=== PATIENT | male | born 1990 | race Caucasian/White ===

== ENCOUNTER 2022-02-15 00:40 | Emergency (ER) | payer OTHER, SELFPAY ==
[2022-02-15 00:46] VITALS: BP 135/90; PULSE 85; RESP 18; TEMP 36.4; O2SAT 98; BMI 25.8
[2022-02-15 01:15] VITALS: TEMP 36.4
[2022-02-15] MEDS: KETOROLAC 30 MG/ML inj IM (01:15)
[2022-02-15] MEDS: MORPHINE 10 MG/ML inj IM (01:16)
--- NOTE | 2022-02-15 01:35 | ED.BACK ---
HPI - Back Pain/Injury General Date Seen: 02/15/22 Chief Complaint: Back Injury/Pain Stated Complaint: Lower Back Pain Time Seen by Provider: 02/15/22 00:41 Source: patient and family Mode of arrival: ambulatory Limitations: no limitations History of Present Illness HPI Narrative: Patient is a 32-year-old gentleman who injured his back yesterday, does remember the actual injury, but describes pain that starts in his lower back and radiates to his right buttock and down his right leg in the hamstrings, to the top of his foot. Has some altered sensation on the top of his foot. But has not fallen, denies any current weakness. Says he has no bowel or bladder problems with this, has been able to urinate and poop. Took Tylenol x1 g earlier today, and ibuprofen 600 mg with really no relief. Brought in by his mother for evaluation of this. Has a history of spinal stenosis remotely he tells me, no history of malignancy, fever, chills, recent surgical issues or instrumentation. Past medical history is reviewed, elicited complaint: back pain Pertinent past history: prior back pain Onset (ago): day(s) Timing: constant Severity: moderate Similar Symptoms Previously: Yes Quality: stabbing and tingling Location: lumbar spine Radiation: right upper leg and right leg below the knee Exacerbating factors: movement and coughing/sneezing Relieving factors: none Associated symptoms: denies other symptoms Treatments prior to arrival: NSAIDS and acetaminophen Work related injury: No Related Data Home Medications Medication Instructions Recorded Confirmed escitalopram oxalate 20 mg tablet 20 mg PO DAILY 02/15/22 02/15/22 Previous Rx's Medication Instructions Recorded gabapentin 300 mg capsule 300 mg PO TID #90 caps 02/15/22 methylprednisolone 4 mg tablets in See Rx Instructions PO .COMPLEX 02/15/22 a dose pack (Medrol (Tima)) #21 ea Allergies Allergy/AdvReac Type Severity Reaction Status Date / Time No Known Drug Allergies Allergy Verified 02/15/22 00:58 Review of Systems Status of ROS: Reports: 10 or more systems reviewed and unremarkable except as noted in History and below [facility] Medical History Lumbar stenosis Surgical History No significant past surgical history Social History Smoking Status: Current some day smoker What tobacco products do you use: cigarettes Do you use any of these nicotine containing products: None Second hand tobacco smoke exposure: Yes How often do you have a drink containing alcohol: never How often do you have six or more drinks on one occasion: Never AUDIT-C Alcohol total score: 0 Non-prescribed substance use: denies use Exam Narrative: Exam Narrative: Patient appears here in some [id number] distress, he listing to the left, offloading his right leg. Some reactive scoliosis associated with this, no palpable tenderness noted over his L-spine, palpation percussion. Flexion minimal approximately 20 ?, positive straight leg raise on the right side, mild weakness of dorsiflex and 4+ out of 5, remainder of distal and proximal muscle groups all normal, slight decrease in L3-L4 knee jerk on the right also. To 1+ remainder of reflexes all 2+, muscle bulk normal bilaterally, no rashes, perianal sensation normal. Const: Vital Signs, click to edit/add: Vital Signs - 24 hr 02/15/22 00:46 02/15/22 01:15 02/15/22 02:10 Temperature 97.6 F 97.6 F 97.6 F Pulse Rate [Right Pulse Oximeter] 85 Respiratory Rate 18 Blood Pressure [Ri ght Upper Arm] 135/90 H Pulse Oximetry 98 Oxygen Delivery Me thod Room Air 02/15/22 02:38 Temperature 97.6 F Pulse Rate [Right Pulse Oximeter] 79 Respiratory Rate 18 Blood Pressure [Ri ght Upper Arm] 125/78 Pulse Oximetry 98 Oxygen Delivery Me thod Room Air Documenting provider has reviewed patient's vital signs: yes Course Course Hospital Course: 2:38 a.m., patient is doing better, pain he reports is decreased, I had a long discussion with him, over this. I suspect he has a lumbar radiculopathy, and will need to follow up with his physician. After discussion the risks benefits side effects I think a small course of narcotic medication will help him, I recommended that he use a stool softener such as Colace and MiraLax with this. I also recommend that he hold off the ibuprofen of for 12 hours as he received Toradol. Gabapentin is also helpful, as the nerve agent, and I gave him a prescription for this also. I recommend follow-up with primary care in the next 3-4 days for recheck and consideration of advanced imaging if he is not improved. Physical therapy can also be helpful. We went over the signs and symptoms of worsening condition including cauda equina syndrome, that he should follow up with the emergency room at once. The risks benefits and side effects of the use of the narcotic medication and gabapentin is discussed with him. A Medrol Dosepak is also helpful, to relieve some of the inflammation. And he is agreed Vital Signs Vital signs: Initial Vital Signs Temperature 97.6 F 02/15/22 00:46 Temperature Source Temporal Artery Scan 02/15/22 00:46 Pulse Rate 85 02/15/22 00:46 Respiratory Rate 18 02/15/22 00:46 Blood Pressure 135/90 H 02/15/22 00:46 Blood Pressure Mean 105 02/15/22 00:46 Blood Pressure Position Sitting 02/15/22 00:46 Pulse Oximetry 98 02/15/22 00:46 Oxygen Delivery Method 02/15/22 00:46 Vital Signs Temperature 97.6 F 02/15/22 00:46 Pulse Rate 85 02/15/22 00:46 Respiratory Rate 18 02/15/22 00:46 Blood Pressure 135/90 H 02/15/22 00:46 Pulse Oximetry 98 02/15/22 00:46 Oxygen Delivery Method 02/15/22 00:46 Temperature 97.6 F 02/15/22 02:38 Pulse Rate 79 02/15/22 02:38 Respiratory Rate 18 02/15/22 02:38 Blood Pressure 125/78 02/15/22 02:38 Pulse Oximetry 98 02/15/22 02:38 Oxygen Delivery Method 02/15/22 02:38 MDM - Back Pain/Injury MDM Narrative Medical decision making narrative: Life-threatening differential diagnosis considered include: Cauda equina an epidural abscess, other differential diagnosis considered includes sprain, contusion, nerve root entrapment, radiculopathy, muscle spasm, urolithiasis, lumbar fracture, pyelonephritis, appendicitis, biliary colic, as well as other etiologies. The patient denies saddle anesthesia bowel or bladder incontinence or lower extremity weakness, recent weight loss, or history of malignancy. Discharge Plan Discharge Clinical Impression: Lumbar radiculopathy Patient Disposition: Home w/ Parent or Adult Condition: Improved Instructions: Lumbar Radiculopathy (ED), Epidural Steroid Injection (DC), Lower Back Exercises (ED) Additional Instructions: Home rest ice on his back, light activity but I do want to moving around a little bit. Return to the emergency room if fevers, chills, bowel or bladder incontinence, follow-up with within the next 3-4 days, for recheck. No ibuprofen x8 hours. Then use as needed. Percocet which is a combination of both oxycodone and acetaminophen for the discomfort, if you do use this please use some stool softeners, as he will become constipated. Fill the prescription for gabapentin and Solu-Medrol also tomorrow. Prescriptions: New methylprednisolone [Medrol (Tima)] 4 mg tablets,dose pack See Rx Instructions .ROUTE .COMPLEX Qty: 21 0RF Rx Instructions: orally per package directions gabapentin 300 mg capsule 300 mg PO TID Qty: 90 2RF No Action escitalopram oxalate 20 mg tablet 20 mg PO DAILY Label Comments: TAKE 1 TABLET BY MOUTH EVERY DAY Follow Up/Referrals: Ariel Banks MD [Primary Care Provider] - Stand Alone Forms: [facility] Info Instructions
[2022-02-15 02:10] VITALS: TEMP 36.4
[2022-02-15] MEDS: predniSONE 20 MG TABLET 60 MG PO (02:36)
[2022-02-15] MEDS: GABAPENTIN 300 MG CAPSULE PO (02:36)
[2022-02-15 02:38] VITALS: BP 125/78; PULSE 79; RESP 18; TEMP 36.4; O2SAT 98
[2022-02-15 02:44] VITALS: BP 125/78; PULSE 79; RESP 18; TEMP 36.4
== END 2022-02-15 02:45 | disposition home or self-care (01) ==
PROVIDERS: Emergency Provider Family Medicine; PCP Internal Medicine
DX: M54.16 Radiculopathy, lumbar region (principal)
CPT/HCPCS: 96372; 99284; A9270; J1885; J2270; J7512

== ENCOUNTER 2022-02-18 17:08 | Outpatient (CLI) | payer OTHER, SELFPAY | END 2022-02-18 17:09 | disposition home or self-care (01) | PROVIDERS: PCP Internal Medicine; Visit Provider Student in an Organized Health Care Education/Training Program | DX: M54.9 Dorsalgia, unspecified (principal) | CPT/HCPCS: A0425; A0433 ==

== ENCOUNTER 2022-02-18 17:40 | Emergency (ER) | payer OTHER, SELFPAY ==
[2022-02-18 17:51] VITALS: BP 144/90; PULSE 101; RESP 18; TEMP 36.3; O2SAT 99; BMI 31.2
--- NOTE | 2022-02-18 18:15 | CRLHL7_ITS ---
For Patients: As a result of the Century Cures Act, medical imaging exams and procedure reports are released immediately into your electronic medical record. You may view this report before your referring provider. If you have questions, please contact your health care provider. INDICATION: Low back pain. Sciatica. TECHNIQUE: Noncontrast sagittal and axial T1, T2, and sagittal STIR sequences are provided. Compared to prior study from March 12, 2013. FINDINGS: The overall stature, alignment and intrinsic marrow signal of the lumbar spine is within normal limits. Conus is normal. L4-5: Mild worsening posterior disc herniation extends 6 millimeters beyond the posterior vertebral body versus 5 millimeters on the prior study resulting in persistent moderate bilateral lateral recess narrowing with compression of the traversing L5 nerve roots with mild central canal and no foraminal narrowing. L5-S1: There is worsening discogenic degenerative change. The mild underlying disc bulge is again demonstrated with interval development of a right posterior paracentral/lateral recess disc extrusion that extends 6 millimeters beyond the posterior vertebral body margin and extends caudally a distance of 11 millimeters resulting in severe right lateral recess narrowing with compression of the traversing right S1 nerve root. Worsening moderate to severe central canal narrowing. Neural foramina are patent. Remainder of the lumbar spine is unremarkable, specifically no evidence of suspicious central canal or foraminal narrowing. IMPRESSION: 1. Interval development of a right posterior paracentral/lateral recess disc extrusion with caudal migration at L5-S1 resulting in severe right lateral recess narrowing with compression of the traversing right S1 nerve root with worsening moderate to severe central canal narrowing. 2. Persistent moderate bilateral lateral recess narrowing at L4-5 with compression of the traversing L5 nerve roots with mild central canal narrowing. Dictated by Shan Oneil MD @ 02/18/2022 7:51:15 PM Dictated by: Shan Oneil MD @ 02/18/2022 19:51:25 (Electronically Signed)
--- NOTE | 2022-02-18 18:17 | ED.GENADULT ---
HPI - General Adult General Time Seen by Provider: 18:17 Date Seen: 02/18/22 Chief complaint: Back Injury/Pain Stated complaint: Back Pain Time Seen by Provider: 02/18/22 17:55 History of Present Illness HPI narrative: Chan is a 32-year-old male past medical history includes depression and lumbar spinal stenosis 10 years ago by MRI presents emerged department by EMS with worsening lower back pain. Patient states that on Tuesday he developed some right lower lumbar pain, he only barbecued on Tuesday, he did no strenuous activity, pain spontaneously started and he was seen in the emergency department here in [place]. He was diagnosed with lumbar radiculopathy, he was given some gabapentin and Medrol Dosepak short course of narcotics in the fall of his primary care provider the next day. There was an MR lumbar spine scheduled for next week. Patient states he has not been feeling better, usually lies in bed gets up from time to time, pain is the right lumbar area radiates down to his foot, he feels like someone is stabbing him. He denies any midline tenderness. He denies any urinary or bowel incontinence or retention, patient states he has numbness down his right leg. He has not had any nausea vomiting or abdominal pain, he said he had a normal bowel movement today. He received 100 mg ketamine prior to his arrival. Related Data Home Medications Medication Instructions Recorded Confirmed escitalopram oxalate 20 mg tablet 20 mg PO DAILY 02/15/22 02/15/22 levocetirizine 5 mg tablet (Xyzal) 5 mg PO QDAY 02/15/22 02/15/22 omeprazole 20 mg capsule,delayed 20 mg PO QDAY 02/15/22 02/15/22 release Previous Rx's Medication Instructions Recorded gabapentin 300 mg capsule 300 mg PO TID #90 caps 02/15/22 methylprednisolone 4 mg tablets in See Rx Instructions PO .COMPLEX 02/15/22 a dose pack (Medrol (Tima)) #21 ea oxycodone-acetaminophen 5 mg-325 1 tab PO TID PRN pain #10 tabs 02/15/22 mg tablet oxycodone 20 mg tablet 20 mg PO TID PRN pain #10 tabs 02/17/22 diazepam 5 mg tablet (Valium) 5 mg PO Q6H PRN #14 tabs 02/18/22 Allergies Allergy/AdvReac Type Severity Reaction Status Date / Time No Known Drug Allergies Allergy Verified 02/15/22 10:45 Review of Systems Status of ROS: Reports: 10 or more systems reviewed and unremarkable except as noted in History and below [facility] Medical History Lumbar stenosis Surgical History No significant past surgical history Social History Smoking Status: Current some day smoker What tobacco products do you use: cigarettes Do you use any of these nicotine containing products: None Second hand tobacco smoke exposure: Yes How often do you have a drink containing alcohol: never How often do you have six or more drinks on one occasion: Never AUDIT-C Alcohol total score: 0 Non-prescribed substance use: denies use service: No Exam Narrative: Exam Narrative: General: Patient is in obvious distress, laying HEENT: Tympanic membranes within normal limits bilaterally oropharynx clear and moist, pupils equal round and reactive to light Neck: Supple full range of motion Heart: Normal sinus rhythm S1-S2 Lungs: Clear to auscultation bilaterally Abdomen: Bowel sounds present, soft nontender Genitourinary: normal rectal tone. Extremities: Nontender to the midline lower lumbar spine, he has tenderness to palpation in the lower lumbar paraspinal musculature L4-L5 and S1, straight leg raise and crossover positive bilaterally, he is hyperreflexic on the right. Equal strength bilateral lower extremities, sensation intact Neuro: Alert awake and oriented x3 Const: Vital Signs, click to edit/add: Vital Signs - 24 hr 02/18/22 17:51 02/18/22 19:27 02/18/22 19:59 Temperature 97.3 F L Pulse Rate [Right Pulse Oximeter] 101 H Respiratory Rate 18 Blood Pressure [Le ft Upper Arm] 144/90 H 126/74 116/68 Pulse Oximetry 99 Oxygen Delivery Me thod Room Air 02/18/22 20:00 Temperature Pulse Rate [Right Pulse Oximeter] Respiratory Rate Blood Pressure [Le ft Upper Arm] 146/97 H Pulse Oximetry Oxygen Delivery Me thod Course Course Hospital Course: AIDET performed. Vitals are stable. Workup will include IV peripheral, 10 mg IV Decadron, 5 mg IV Valium, 1 mg IV Dilaudid and 30 mg of IV Toradol for his pain, patient's exam showed good rectal tone, no issues with urinary or bowel incontinence or retention, is able to move his lower extremities. Will still obtain MR lumbar spine without. Reevaluation(s) Reevaluation #1: MR Lumbar spine w/o IMPRESSION: 1. Interval development of a right posterior paracentral/lateral recess disc extrusion with caudal migration at L5-S1 resulting in severe right lateral recess narrowing with compression of the traversing right S1 nerve root with worsening moderate to severe central canal narrowing. 2. Persistent moderate bilateral lateral recess narrowing at L4-5 with compression of the traversing L5 nerve roots with mild central canal narrowing. Patient was updated on his imaging and lab results, plan would be to admit for pain control and PT OT evaluation, tried to reach out to [facility] and [facility] but they were unable to accommodate. Time: 20:40 Reevaluation #2: Spoke with [place] [facility] the [place]. He will get patient into their clinic next week for discussion on surgery. 10:00 PM: Patient is tolerating the pain at this time, he is able to ambulate, plan would be to discharge, he will get a short course of oxycodone and Valium out of [facility], follow-up will be arranged with neurosurgery at [facility] hopefully soon, he should also reach out to his primary care provider about his ED visit. All questions answered. Time: 21:14 Vital Signs Vital signs: Initial Vital Signs Temperature 97.3 F L 02/18/22 17:51 Temperature Source Temporal Artery Scan 02/18/22 17:51 Pulse Rate 101 H 02/18/22 17:51 Pulse Rhythm 02/18/22 17:51 Respiratory Rate 18 02/18/22 17:51 Blood Pressure 144/90 H 02/18/22 17:51 Blood Pressure Mean 108 02/18/22 17:51 Blood Pressure Position Supine 02/18/22 17:51 Pulse Oximetry 99 02/18/22 17:51 Oxygen Delivery Method 02/18/22 17:51 Vital Signs Temperature 97.3 F L 02/18/22 17:51 Pulse Rate 101 H 02/18/22 17:51 Respiratory Rate 18 02/18/22 17:51 Blood Pressure 144/90 H 02/18/22 17:51 Pulse Oximetry 99 02/18/22 17:51 Oxygen Delivery Method 02/18/22 17:51 Temperature 97.3 F L 02/18/22 17:51 Pulse Rate 101 H 02/18/22 17:51 Respiratory Rate 18 02/18/22 17:51 Blood Pressure 146/97 H 02/18/22 20:00 Pulse Oximetry 99 02/18/22 17:51 Oxygen Delivery Method 02/18/22 17:51 Medical Decision Making Lab Data Labs: Lab Results 02/18/22 02/18/22 02/18/22 Range/Units 18:36 18:36 20:40 WBC 15.60 H (4.50-11.00) K/uL RBC 5.35 (4.30-5.90) m/uL Hgb 15.7 (13.5-17.5) gm/dL Hct 45.1 (37.0-53.0) % MCV 84 (80-100) fL MCH 29 (26-34) pg MCHC 35 (32-36) gm/dL RDW Coeff of Josue 12.2 (11.5-15.5) % Plt Count 434 (140-440) K/uL Neut % (Auto) 75.9 H (42.0-72.0) % Lymph % (Auto) 17.1 L (20-44) % [place] % (Auto) 6.2 (0.0-11.0) % Eos % (Auto) 0.1 (0.0-7.0) % Baso % (Auto) 0.3 (0.0-3.0) % Neut # (Auto) 11.80 H (1.7-7.0) K/uL Lymph # (Auto) 2.70 (0.90-2.90) K/uL [place] # (Auto) 1.00 H (0.00-0.90) K/UL Eos # (Auto) 0.00 (0.00-0.50) K/uL Baso # (Auto) 0.00 (0.00-0.30) K/uL Abs Immat Gran (auto) 0.06 (0.00-0.30) K/uL Sodium 136 (135-149) mmol/L Potassium 3.6 (3.6-5.1) mmol/L Chloride 103 (96-114) mmol/L Carbon Dioxide 20 (20-32) mmol/L BUN 27 H (5-24) mg/dL Creatinine 1.1 (0.5-1.5) mg/dL Estimated Creat Clear 103.86 Estimated GFR 90 ml/min Glucose 114 (60-115) mg/dL Calcium 9.6 (8.4-10.6) mg/dL C-Reactive Protein < 0.5 L (0.5-1.0) mg/dL SARS-CoV-2 (PCR) Negative SARS-CoV-2 (Negative) Influenza Type A (PCR) Negative PCR FLU A (Negative) Influenza Type B (PCR) Negative PCR FLU B (Negative) Discharge Plan Discharge Clinical Impression: Extrusion of intervertebral disc, Low back pain radiating to right leg Patient Disposition: Home, Self-Care Condition: Improved Instructions: Lumbar Radiculopathy (ED) Additional Instructions: To continue with Motrin 600 mg and 1000 mg acetaminophen every 4-6 hours, for breakthrough pain oxycodone 5 mg with Valium 5 mg, to continue Medrol Dosepak, to await call from [place]surgery at [facility] [place] up clinic appointment, return if worsening symptoms. Activity Level: Activity as Tolerated Prescriptions: New diazepam [Valium] 5 mg tablet 5 mg PO Q6H PRNQty: 14 0RF No Action levocetirizine [Xyzal] 5 mg tablet 5 mg PO QDAY omeprazole 20 mg capsule,delayed release(DR/EC) 20 mg PO QDAY oxycodone-acetaminophen 5-325 mg tablet 1 tab PO TID PRN (Reason: pain) Qty: 10 0RF escitalopram oxalate 20 mg tablet 20 mg PO DAILY Label Comments: TAKE 1 TABLET BY MOUTH EVERY DAY methylprednisolone [Medrol (Tima)] 4 mg tablets,dose pack See Rx Instructions .ROUTE .COMPLEX Qty: 21 0RF Rx Instructions: orally per package directions gabapentin 300 mg capsule 300 mg PO TID Qty: 90 2RF oxycodone 20 mg tablet 20 mg PO TID PRN (Reason: pain) Qty: 10 0RF Follow Up/Referrals: Ariel Banks MD [Primary Care Provider] - Stand Alone Forms: [facility] Info Instructions
[2022-02-18] MEDS: dexAMETHasone 10 MG/ML inj IVP (18:36)
[2022-02-18] MEDS: diazePAM 5 MG/ML inj IV ×2 (18:37→21:51)
[2022-02-18] MEDS: KETOROLAC 30 MG/ML inj IVP (18:39)
[2022-02-18] MEDS: HYDROmorphone 0.5 mg/0.5 ml inj 1 MG IVP (18:41)
[2022-02-18 18:44] LABS: Basophils Percent Auto 0.3 % (0.0-3.0); Eosinophils Percent Auto 0.1 % (0.0-7.0); Hematocrit 45.1 % (37.0-53.0); Hemoglobin* 15.7 gm/dL (13.5-17.5); Immature Granulocytes Abs Auto 0.06 K/uL (0.00-0.30); Lymphocytes Percent Auto 17.1 % (20-44); Mean Corpuscular HGB Conc 35 gm/dL (32-36); Mean Corpuscular Hemoglobin 29 pg (26-34); Mean Corpuscular Volume 84 fL (80-100); Monocytes Percent Auto 6.2 % (0.0-11.0); Neutrophils Percent Auto 75.9 % (42.0-72.0); Platelet Count* 434 K/uL (140-440); RDW Coefficient of Variation % 12.2 % (11.5-15.5); Red Blood Count 5.35 m/uL (4.30-5.90)
[2022-02-18 18:46] LABS: Slide Review Reflex No
[2022-02-18 19:06] LABS: Chloride* 103 mmol/L (96-114)
[2022-02-18 19:07] LABS: Potassium* 3.6 mmol/L (3.6-5.1); Sodium* 136 mmol/L (135-149)
[2022-02-18 19:09] LABS: Creatinine* 1.1 mg/dL (0.5-1.5); Est. Creatinine Clearance* 103.86; Estimated Glomerular Filt Rate 90 ml/min
[2022-02-18 19:10] LABS: Blood Urea Nitrogen* 27 mg/dL (5-24); Carbon Dioxide* 20 mmol/L (20-32); Glucose* 114 mg/dL (60-115)
[2022-02-18 19:11] LABS: Calcium* 9.6 mg/dL (8.4-10.6)
[2022-02-18 19:14] LABS: C Reactive Protein* < 0.5 mg/dL (0.5-1.0)
[2022-02-18 19:27] VITALS: BP 126/74
[2022-02-18 19:59] VITALS: BP 116/68
[2022-02-18 20:00] VITALS: BP 146/97
--- NOTE | 2022-02-18 20:10 | ED.NURSE ---
ANW called for neurosurg consult
[2022-02-18] MEDS: HYDROmorphone 0.5 mg/0.5 ml inj IVP (21:07)
[2022-02-18 22:03] LABS: PCR FLU A Negative PCR FLU A (Negative); SARS PCR* Negative SARS-CoV-2 (Negative)
[2022-02-18 22:04] LABS: PCR FLU B Negative PCR FLU B (Negative)
== END 2022-02-18 22:48 | disposition home or self-care (01) ==
PROVIDERS: Emergency Provider Student in an Organized Health Care Education/Training Program; PCP Internal Medicine
DX: M51.16 Intervertebral disc disorders with radiculopathy, lumbar region (principal)
CPT/HCPCS: 36415; 72148; 80048; 85025; 86140; 87631; 96374; 96375; 96376; 99283; 99284; J1100; J1170; J1885; J3360

== ENCOUNTER 2022-03-25 13:30 | Outpatient (RCR) | payer OTHER, SELFPAY | END 2023-01-06 23:59 | disposition home or self-care (01) | PROVIDERS: PCP Internal Medicine; Visit Provider Specialist | DX: M51.26 Other intervertebral disc displacement, lumbar region (principal); Z51.89 Encounter for other specified aftercare | CPT/HCPCS: 97110; 97140; 97162; 97535 ==

== ENCOUNTER 2022-04-18 00:47 | Outpatient (CLI) | payer OTHER, SELFPAY ==
--- OUTSIDE RECORDS SUMMARY | 2022-05-24 21:02 | XMS_ITS | Clinical Summary ---
:1990 Author Organization [email or web address] [place] [address] Care Team Providers Name Role Phone Unavailable Primary Care Provider Unavailable Allergies Active Allergy Reactions Severity Noted Date Comments [place] Oil Throat Swelling/Closing Low 02/07/2007 [place] Nut Anaphylaxis High 04/14/2022 Tree Nut Anaphylaxis High 04/14/2022 Medications Medication Sig Dispensed Refills Start Date End Date Status albuterol HFA INHALE 2 PUFFS BY 0 06/18/2021 Active (PRO-AIR; VENTOLIN; MOUTH EVERY 4 TO 6 PROVENTIL) 90 HOURS NEEDED FOR mcg/actuation inhaler WHEEZING/DIFFICULT BREATHING clobetasol cream Apply topically to 0 07/24/2021 Active 0.05% (TEMOVATE) 0.05 affected area(s) % cream once weekly. Uses on weekends gabapentin Take 300 mg by 0 02/15/2022 Act alfonso (NEURONTIN) 300 mg mouth two times capsule daily. levocetirizine Take 5 mg by mouth 0 Active (XYZAL) 5 mg tab once daily. tablet omeprazole 20 mg Take 20 mg by mouth 0 Active tablet once daily. ruxolitinib 1.5 % Apply topically to 0 Active creaIndications: affected area(s) at eczema bedtime. To hands escitalopram oxalate Take 20 mg by mouth 0 2 Active (LEXAPRO) 20 mg once daily. tablet EPINEPHrine (EPIPEN) Inject 1 pen 0 Active 0.3 mg/0.3 mL intramuscular each auto-injector time if needed for Allergic Reaction. acetaminophen Take 2 Tablets 0 04/17/2022 Active (TYLENOL EXTRA (1,000 mg) by mouth STRGTH) 500 mg every 6 hours if tabletIndications: needed for Pain. Postoperative pain Max acetaminophen dose: 4000mg in 24 hrs. methocarbamoL Take 1 Tablet (750 25 Tablet 0 04/17/2022 Active (ROBAXIN) 750 mg mg) by mouth every tabletIndications: 6 hours if needed Postoperative pain for Muscle Spasm. oxyCODONE Take 1 to 2 tablets 25 Tablet 0 04/17/2022 Active (ROXICODONE) 5 mg (5-10 mg) by mouth immediate release every 4 hours if tabletIndications: needed for severe Postoperative pain pain. sennosides-docusate Take 1-4 Tablets by 30 Tablet 0 04/17/2022 Active (SENOKOT S) (8.6-50 mouth two times mg) daily. tabletIndications: Constipation, unspecified constipation type WalkerIndications: Walker with front 1 Each 0 04/20/2022 Active Spinal stenosis of wheels for home use lumbar region, for 3 months. unspecified whether neurogenic claudication present ibuprofen (ADVIL; Take 3 Tablets (600 0 04/20/2022 Active MOTRIN) 200 mg mg) by mouth every tabletIndications: 6 hours if needed Postoperative pain for Pain. Maximum after spinal surgery of 3200 mg in 24 hours. cyclobenzaprine Take 1 Tablet (5 30 Tablet 0 04/20/2022 Active (FLEXERIL) 5 mg mg) by mouth three tabletIndications: times daily. Postoperative pain after spinal surgery Active Problems Problem Noted Date Anxiety 04/16/2022 Postoperative pain 04/16/2022 Allergic rhinitis 04/16/2022 Unspecified asthma(493.90) 11/01/2006 Sprain of hand, unspecified site 11/01/2006 Nut allergy Overview: tree nuts (NOT peanuts) Acne Encounters Date Type Specialty Care Team Description 04/21/2022 Patient Outreach Chun, Primary RN Care Eunice Miranda RN Management (Chasidy jones score 63); Hospital F /U (Post hospital) 04/18/2022 - Hospital Encounter Aristeo Thomas Postop erative pain after spinal surgery (Primary Dx); 04/20/2022 ALLYN Herring Spinal stenosis of lumbar region, unspec ified whether neurogenic claudication present [place], Ina Heaven, MD Deniz Fisher PA [place], Jonathan Sanford, MD [place], [facility] Naren Cui MD Discharge Summary - Anurag Anhmarcela Rodriguez NP - 05/10/2022 4:53 PM CST HOSPITAL DISCHARGE SUMMARY Patient Name: Chan Alvarez Date of : 1990 Age : 32 y.o. [id number] Primary Physician: [facility] Admission Date: 04/18/2022 Discharge Date: 04/20/2022 BRIEF HOSPITAL COURSE: MrIva Alvarez is a 32 y .o. who underwent Right sided L5-S1 hemilaminotomy, diskectomy on 04/16/[address] Caraballo, discharged to home on 04/17/22. [facility] returned to [facility] on 04/18/22 with new pain and par esthesias, along with diffic ulty starting urine stream. MRI was completed, shows postop changes. Patient appears to have hematoma in discectomy area space versus recurrence. At time of surgery, nerve wa s completely free with excur brian. Patient received corticosteroids with significant relief in symptoms. He was discharged from [facility] to home. PRINCIPAL DIAGNOSIS CAUSING [...] your medicines These medications were sent to [facility] [address] [place] [id number] Hours: Open 24 Hours ?? cyclobenzaprine 5 [...] Please follow up with Naren Salinas* at [facility] in 4-6 weeks. If you follow with your surg marshal at [facility], call [phone] for questions, or to make an appointment. If you follow with your surg marshal at [facility], please call [facility] Orthopedic Center at [phone] When to follow up: 4 to 6 [...] with gauze and call the surgeon at [phone]. Information about NSAIDS NSAIDs (Non-Steroidal Anti- Inflammatories): [...] your surgeon - follow specific exercise p rogram outlined in the spine manual by your surgeon, therapist, fire equipment inspector helper - stay away from hot tubs, t [...] nearby hospital [facility] The reason you were in the hospital is for spine surgery. Your incision was closed wi th: - Steri Strips; they will f all off on their own; do not remove them. Total time spent for dischar ge on date of discharge: 20 minutes Anh Disla CNP [facility] RT MANAGER 04/18/2022 Travel 04/16/2022 Anesthesia Event DecrejarekeEdward MD Zimmerman, Anna A, INSIDE SALES EXECUTIVE 04/16/2022 Surgery Genny Caraballo DECOMPRESSION- MD Chayito HEMILAMINOTOMY/ DISCECTOM Y L4-S1 04/16/2022 - Hospital Encounter Genny Caraballo Postopera tive pain (Primary Dx); 04/17/2022 MD Chayito Constipation, u nspecified constipation type 04/16/2022 Travel 04/14/2022 Travel 03/02/2022 Telephone Center, [place] Referral (Rec eived Pain injection refer ral from [facility]) from Last 3 Months Immunizations [...] Time Signature COVID 19 Negative Negative 04/18/2022 [facility] 12:03 PM CDT LABORATORY-[facility] MOLECULAR TRAL LABORATORY [...] CDT AM CDT STRUCTURE / Unknown Narrative [facility] LABORATORY-CENTRAL LABORAT ORY - 04/18/2022 12:03 [...] sooner. Deniz GRUBER MICROBIOLOGY Performing Organization Address City/[facility]/ZIP Code Phon e Number [facility] [address] [place] [address] LABORATORY-CENTRAL 2000 LABORATORY COVID 19 COLLECTION (04/18/2022 8:50 AM CDT) [facility] Method Time Signature TESTING [facility] 04/18/2022 [facility] LABORATORY Laboratory 8:56 AM CDT LABORATORY-CE NTRAL LABORATORY Comment: Specimen submitted to [facility] Laboratory for testing. Specimen Anatomical Location / Collection Method Collection Kj e Received Time (Source) Laterality / Volume Other SPECIMEN FROM Non-Blood / 04/18/2022 8:50 04/18/2022 8:56 NASOPHARYNGEAL Unknown AM CDT AM CDT STRUCTURE / Unknown Deniz GRUBER SEND OUTS Performing Organization Address City/[facility]/ZIP [facility] Phon e Number [facility] [address] [place] [address] LABORATORY-CENTRAL 2000 LABORATORY MR Lumbar Spine wo [...] neural foraminal narrowing. L4-5: Moderate disc degeneration. Bottom Stainer ior disc bulge. Dorsal epidural fat prominence [...] narrowing. Procedure Note Ricky Saeed MD - 04/18/2022 ormatting of this note might be different from the original. For Patients: As a result of the ntury Cures Act, medical imaging exams and procedure reports are released immediately into your electronic medical record. You may view this report before your referring provider. If you have questions, please contact doctors hospital care provider. INDICATION: Low back pain. Cauda [...] neural foraminal narrowing. L4-5: Moderate disc degeneration. Bottom Stainer ior disc bulge. Dorsal epidural fat prominence [...] PLT NO DIFF (04/18/2022 4:35 AM CDT) [facility] Method Time Signature WHITE BLOOD 11.9 (H) 4.5 - 11.0 04/18/2022 [facility] COUNT thou/cu mm 4:54 AM CDT LABORATORY-[facility] TRAL LABORATORY RED BLOOD COUNT 4.60 4.30 - 04/18/2022 [facility] 5.90 4:54 AM CDT LABORATORY-[facility] mil/cu mm TRAL LABORATORY HEMOGLOBIN 13.6 13.5 - 04/18/2022 [facility] 17.5 g/dL 4:54 AM CDT LABORATORY-[facility] TRAL LABORATORY HEMATOCRIT 39.8 37.0 - 04/18/2022 [facility] 53.0 % 4:54 AM CDT LABORATORY-[facility] TRAL LABORATORY MCV 87 80 - 100 04/18/2022 [facility] 4:54 AM CDT LABORATORY-[facility] TRAL LABORATORY MCH 29.6 26.0 - 04/18/2022 [facility] 34.0 pg 4:54 AM CDT LABORATORY-[facility] TRAL LABORATORY MCHC 34.2 32.0 - 04/18/2022 [facility] 36.0 g/dL 4:54 AM CDT LABORATORY-[facility] TRAL LABORATORY RDW 12.3 11.5 - 04/18/2022 [facility] 15.5 % 4:54 AM CDT LABORATORY-[facility] TRAL LABORATORY PLATELET COUNT 313 140 - 440 04/18/2022 [facility] thou/cu mm 4:54 AM CDT LABORATORY-[facility] TRAL LABORATORY MPV 9.2 6.5 - 11.0 04/18/2022 [facility] fL 4:54 AM CDT LABORATORY-[facility] TRAL LABORATORY NRBC 0.0 % 04/18/[facility]22 [facility] 4:54 AM CDT LABORAT[facility] TRAL LABORATORY ABS NRBC 0.0 thou /cu 04/18/2022 [facility] mm 4:54 AM CDT LABORATORY-[facility] TRAL LABORATORY Specimen Anatomical Collection Method / Collection Time Recei maddy Time (Source) Location / Volume Laterality Blood BLOOD SPECIMEN / Venipuncture / 04/18/2022 4:35 2021 4:49 Unknown Unknown AM CDT AM CDT [facility] GRUBER HEMATOLOGY Performing Organization Address City/State/ZIP Code Phon e Number [facility] [address] [place] [address] LABORATORY-CENTRAL 2000 LABORATORY (ABNORMAL) BASIC METABOLIC PANEL (04/18/2022 4:35 AM CDT) Analysis Performed At Patho logist Time Signature SODIUM 139 135 - 145 04/18/2022 [facility] mmol/L 5:16 AM CDT LABORATORY-[facility] TRAL LABORATORY POTASSIUM 3.7 3.5 - 5.0 04/18/2022 [facility] mmol/L 5:16 AM CDT LABORATORY-[facility] TRAL LABORATORY CHLORIDE 107 98 - 110 04/18/2022 [facility] mmol/L 5:16 AM CDT LABORATORY-[facility] TRAL LABORATORY CO2,TOTAL 26 21 - 31 04/18/2022 [facility] mmol/L 5:16 AM CDT LABORATORY-[facility] TRAL LABORATORY ANION GAP 6 5 - 18 04/18/2022 [facility] 5:16 AM CDT LABORATORY-[facility] TRAL LABORATORY GLUCOSE 101 (H) 65 - 100 04/18/2022 [facility] mg/dL 5:16 AM CDT LABORATORY-[facility] TRAL LABORATORY CALCIUM 9.3 8.5 - 10.5 04/18/2022 [facility] mg/dL 5:16 AM CDT LABORATORY-[facility] TRAL LABORATORY BUN 14 8 - 25 04/18/2022 [facility] mg/dL 5:16 AM CDT LABORATORY-[facility] TRAL LABORATORY CREATININE 0.98 0.72 - 04/18/2022 [facility] 1.25 mg/dL 5:16 AM CDT LABORATORY-[facility] TRAL LABORATORY BUN/CREAT RATIO 14 10 - 20 04/18/2022 [facility] 5:16 AM CDT LABORATORY-[facility] TRAL LABORATORY eGFR >90 >90 04/18/2022 [facility] mL/min/1.7 5:16 AM CDT LABORATORY-[facility] 3m2 TRAL [...] Organization Address City/State/ZIP Code Phon e Number [facility] [address] [place] [address] LABORATORY-CENTRAL 2000 LABORATORY XR SPINE 1 VIEW [...] report s [facility]. ??You may view this report [...] provider. If you have questions, please contact [facility] health care provider. INDICATIONS: Spinal localization. TECHNIQUE: [...] GLUCOSE METER 95 65 - 100 04/16/2022 [facility] mg/dL 7:19 AM CDT LABORATORY-CENT RAL LABORATORY Specimen Anatomical Collection Method Collection Time Receive d Time (Source) Location / / Volume Laterality Blood BLOOD SPECIMEN / 04/16/2022 6:59 AM 04/16 7:19 Unknown CDT AM CDT Genny Caraballo MD CHEMISTRY Performing Organization Address City/State/ZIP Code Phon e Number [facility] [address] [place] [address] LABORATORY-CENTRAL 2000 LABORATORY SCAN-CARDIAC STRIP (04/16/2022 12:00 [...] ss Type Group PREFERRED ONE PREFERRED ONE [id number] 2019-Present [address] [place] [address] Advance Directives Latest Code Status on File [...]
== END 2022-04-18 00:48 | disposition home or self-care (01) ==
LOC: AMB 05-24 21:00
PROVIDERS: PCP Internal Medicine; Visit Provider Family Medicine
DX: M54.9 Dorsalgia, unspecified (principal)
CPT/HCPCS: A0425; A0427

== ENCOUNTER 2022-05-05 09:20 | Outpatient (CLI) | payer OTHER, SELFPAY ==
--- OUTSIDE RECORDS SUMMARY | 2022-05-05 09:47 | XMS_ITS | Clinical Summary ---
:1990 Author Organization [employer] [place] [address] Care Team Providers Name Role Phone [facility] Primary Care Provider Allergies Active Allergy Reactions Severity Noted Date Comments [place] Oil Throat Swelling/Closing Low 02/07/2007 [place] Nut Anaphylaxis High 04/14/2022 Tree Nut Anaphylaxis High 04/14/2022 Medications Medication Sig Dispensed Refills Start End Status Date Date albuterol HFA INHALE 2 PUFFS BY 0 Active (PRO-AIR; VENTOLIN; MOUTH EVERY 4 TO 1 PROVENTIL) 90 6 HOURS NEEDED mcg/actuation FOR inhaler WHEEZING/DIFFICUL T BREATHING clobetasol cream Apply topically 0 Active 0.05% (TEMOVATE) to affected 2 0.05 % cream area(s) once weekly. Uses on weekends gabapentin Take 300 mg by 0 Acti ve (NEURONTIN) 300 mg mouth two times 2 capsule daily. levocetirizine Take 5 mg by 0 Ac tive (XYZAL) 5 mg tab mouth once daily. tablet omeprazole 20 mg Take 20 mg by 0 Active tablet mouth once daily. ruxolitinib 1.5 % Apply topically 0 Active creaIndications: to affected eczema area(s) at bedtime. To hands escitalopram Take 20 mg by 0 Act alfonso oxalate (LEXAPRO) mouth once daily. 2 20 mg tablet EPINEPHrine Inject 1 pen 0 Activ e (EPIPEN) 0.3 mg/0.3 intramuscular mL auto-injector each time if needed for Allergic Reaction. acetaminophen Take 2 Tablets 0 A ctive (TYLENOL EXTRA (1,000 mg) by 2 STRGTH) 500 mg mouth every 6 tabletIndications: hours if needed Postoperative pain for Pain. Max acetaminophen dose: 4000mg in 24 hrs. methocarbamoL Take 1 Tablet 25 Tablet 0 Ac tive (ROBAXIN) 750 mg (750 mg) by mouth 2 tabletIndications: every 6 hours if Postoperative pain needed for Muscle Spasm. oxyCODONE Take 1 to 2 25 Tablet 0 Active (ROXICODONE) 5 mg tablets (5-10 mg) 2 immediate release by mouth every 4 tabletIndications: hours if needed Postoperative pain for severe pain. sennosides-docusate Take 1-4 Tablets 30 Tablet 0 Active (SENOKOT S) (8.6-50 by mouth two 2 mg) times daily. tabletIndications: Constipation, unspecified constipation type WalkerIndications: Walker with front 1 Each 0 Active Spinal stenosis of wheels for home 2 lumbar region, use for 3 months. unspecified whether neurogenic claudication present ibuprofen (ADVIL; Take 3 Tablets 0 Active MOTRIN) 200 mg (600 mg) by mouth 2 tabletIndications: every 6 hours if Postoperative pain needed for Pain. after spinal Maximum of 3200 surgery mg in 24 hours. cyclobenzaprine Take 1 Tablet (5 30 Tablet 0 Active (FLEXERIL) 5 mg mg) by mouth 2 tabletIndications: three times Postoperative pain daily. after spinal surgery CLEOCIN T 1 % TO FACE BID 0 Disc ontinued LOTION 7 022 (Pharmacis t change per medication history (E-cancel not sent)) DIFFERIN 0.1 % QPM 0 Disco ntinued TOPICAL GEL 7 022 (Pharmac ist change per medication history (E-cancel not sent)) DESQUAM-E 10 % QAM 0 Disco ntinued TOPICAL GEL 7 022 (Pharmac ist change per medication history (E-cancel not sent)) MAXAIR AUTOHALER 2 puffs every 4 1 0 Discontinued 200 MCG/INHALATION hours as needed 9 022 (Pharmacist BREATH change per ACTIVATEDIndication medication s: Unspecified histo ry asthma(493.90) (E-ca ncel not sent)) EPIPEN 0.3 MG/0.3 inject 0.3 mg by 2 0 04/15 Discontinued ML (1:1,000) IM intramuscular 9 022 (Pharmacist INJECTORIndications route once as change per : Nut allergy needed for medic ation anaphylaxis history (E-cancel not sent)) diazePAM (VALIUM) 5 Take 5 mg by 0 Discontinued mg tablet mouth every 6 2 022 (*IP hours if needed. Dis continued) WalkerIndications: Walker with front 1 Each 0 Discontinued Postoperative pain wheels for home 2 022 (Pharmacist use for 3 months. ch demetrice per medication history (E-cancel not sent)) Active Problems Problem Noted Date Anxiety 04/16/2022 Postoperative pain 04/16/2022 Allergic rhinitis 04/16/2022 Unspecified asthma(493.90) 11/01/2006 Sprain of hand, unspecified site 11/01/2006 Nut allergy Overview: tree nuts (NOT peanuts) Acne Encounters Date Type Specialty Care Team Description 04/21/2022 Patient Outreach Chun, Primary RN Care Eunice Miranda RN Management (Chasidy ce score 63); Hospital F /U (Post hospital) 04/18/2022 - Hospital Encounter Aristeo Thomas Postop erative pain after spinal surgery (Primary Dx); 04/20/2022 ALLYN Herring Spinal stenosis of lumbar region, unspec ified whether neurogenic claudication present Ina Parmar MD Arnett, Collin Robert, PA [place], Jonathan Sanford, MD [facility] Spine Naren Cui MD 04/18/2022 Travel 04/16/2022 Anesthesia Event Decresce, MD Sandra Macias Anna A, CRNA 04/16/2022 Surgery Genny Caraballo- MD [place] HEMILAMINOTOMY/ DISCECTO MY L4-S1 04/16/2022 - Hospital Encounter Genny Caraballo Postopera tive pain (Primary Dx); 04/17/2022 MD [place] Constipation, u nspecified constipation type 04/16/2022 Travel 04/14/2022 Travel 03/02/2022 Telephone Center, [place] Referral (Rec eived Pain injection refer ral from [facility]) from Last 3 Months Immunizations Name Administration Dates Next Due AMB Influenza, IIV3 (Age >=3 years)(Flu 04/12/2008 Clinic Only) Hepatitis B (Adult) 10/29/1998, 06/09/1998, 04/09/1998 Influenza, IIV3 (Age >=3 years) 05/09/2007, 04/30/2006 MMR 09/26/2000 Meningococcal Vaccine (Menactra) 02/07/2007 Td (Age >=7 Years) 09/26/2000 Family History Medical History Relation Name Comments Good Health Father Good Health Mother Good Health Sister 2 Relation Name Status Comments Father Alive Mother Alive Sister 1 Alive Sister 2 Social History Tobacco Use Types Packs/Day Years Used Date Never Smoker Smokeless Tobacco: Never Used Alcohol Use Standard Drinks/Week Comments Yes 6.7 (1 standard drink = 0.6 oz pure rare ly drinks to drunkenness, alcohol) usually a beer or gl ass of wine about 5 times a week Sex Assigned at Date Recorded Not on file COVID-19 Exposure Response Date Recorded In the last 10 days, have you been in contact Unable to asse ss 04/18/2022 2:04 AM CDT with someone who was confirmed or suspected to have Coronavirus/COVID-19? Obstetrics History Last Filed Vital Signs Vital Sign Reading Time Taken Comments Blood Pressure 124/82 04/20/2022 8:00 AM CDT Pulse 61 04/20/2022 8:00 AM CDT Temperature 36.5 ??C (97.7 ??F) 04/20/2022 1:00 AM CDT Respiratory Rate 16 04/20/2022 8:00 AM CDT Oxygen Saturation 97% 04/20/2022 8:00 AM CDT Inhaled Oxygen Concentration - - Weight 99.8 kg (220 lb) 04/18/2022 2:05 AM CDT Height 182.9 cm (6') 04/18/2022 2:05 AM CDT Body Mass Index 29.84 04/18/2022 2:05 AM CDT Plan of Treatment Health Maintenance Due Date Last Done Comments Tdap 02/02/1999 Depression screening for age 12+ 2000 HIV for age 15-65 02/02/2003 BMI (ht and wt on same day) for 02/02/2006 age 18+ Hepatitis C screening for age 0802/02/2006 18-79 Tetanus booster 09/26/2010 09/26/2000 Influenza for age 9-49 02/18/2022 04/12/2008, 05/09/2007, 04/30/2006 COVID-19 vaccine series Completed 04/01/2022, 06/09/2021, 10/07/2020, Additional history exists Procedures Procedure Name Priority Date/Time Associated Diagnosis Comme nts COVID 19 STAT 04/18/2022 8:50 Results for this AM CDT procedure are i n the results section. COVID 19 COLLECTION STAT 04/18/2022 8:50 Resul ts for this AM CDT procedure are i n the results section. MR SPINE LUMBAR WO STAT 04/18/2022 5:52 Result s for this AM CDT procedure are i n the results section. BASIC METABOLIC PANEL STAT 04/18/2022 4:35 Res ults for this AM CDT procedure are i n the results section. CBC W PLT NO DIFF STAT 04/18/2022 4:35 Results for this AM CDT procedure are i n the results section. XR SPINE 1 VIEW Routine 04/16/2022 8:32 Results f or this PORTABLE AM CDT procedure are i n the results section. ENDOTRACHEAL TUBE Routine 04/16/2022 7:43 Results for this AM CDT procedure are i n the results section. ENDOTRACHEAL TUBE Routine 04/16/2022 7:43 Results for this AM CDT procedure are i n the results section. ENDOTRACHEAL TUBE Routine 04/16/2022 7:43 Results for this AM CDT procedure are i n the results section. LAMINECTOMY Tier 4 04/16/2022 7:11 Stenosis, Lumbar - MICRODISCECTOMY LEVEL AM CDT w/Neurogenic 02 Claudication M48.062 Radiculopathy, Lumbar M54.16 Weakness R53.1 Case Notes C_Arm Igor-Paul FrameMR Special Needs WT 230 GLUCOSE METER Timed 04/16/2022 6:59 AM CDT Resu lts for this procedure are in the resu lts section. SCAN-CARDIAC STRIP 04/16/2022 12:00 AM CDT Results for this procedure are in the resu lts section. SCAN CORRESP-LABORATORY 04/15/2022 12:00 AM CDT Results for this procedure RESULTS are in the resu lts section. from Last 3 Months Results COVID 19 (04/18/2022 8:50 AM CDT) Analysis Performed At Path logist Time Signature COVID 19 Negative Negative [facility] PM [facility] Comment: All PCR tests are subject to fa lse negative result due to variability in viral load and collection technique. A n egative result does not rule out a SARS-CoV-2 infection. Clinical correlation required . Specimen Anatomical Location / Collection Method Collection Kj e Received Time (Source) Laterality / Volume Other SPECIMEN FROM Non-Blood / 04/18/2022 8:50 04/18/2022 8:56 NASOPHARYNGEAL Unknown AM CDT AM CDT STRUCTURE / Unknown Narrative [facility] LABORATORY-CENTRAL LABORAT ORY - 04/18/2022 12:03 PM CDT This test has been authorized by FDA und er an Emergency Use Authorization (EUA). This test is only authorized for the duration of time the declaration that circumstances exist justifying the authorization of th e emergency use of in vitro diagnostic tests for detection of SARS-CoV-2 virus and/or diagnosis of COVID-19 infection under section 564(b)(1) of the Act, 21 U.S.C. 360bbb-3(b) (1), unless the authorization is terminated or revoked sooner. Deniz [facility] Performing Organization Address City/State/ZIP Code Phon e Number [facility] [address] [place] [address] LABORATORY-CENTRAL 2000 LABORATORY COVID 19 COLLECTION (04/18/2022 8:50 AM CDT) [facility] Method Time Signature TESTING [facility] 04/18/2022 [facility] LABORATORY Laboratory 8:56 AM CDT LABORATORY-CE NTRAL LABORATORY Comment: Specimen submitted to [facility] for testing. Specimen Anatomical Location / Collection Method Collection Kj e Received Time (Source) Laterality / Volume Other SPECIMEN FROM Non-Blood / 04/18/2022 8:50 04/18/2022 8:56 NASOPHARYNGEAL Unknown AM CDT AM CDT STRUCTURE / Unknown Deniz [facility] SEND OUTS Performing Organization Address City/State/ZIP Code Phon e Number [facility] [address] [place] [address] LABORATORY-CENTRAL 1999 LABORATORY MR Lumbar Spine wo Contrast (04/18/2022 5:52 AM CDT) Anatomical Region Laterality Modality Spine, LUMBAR SPINE Magnetic Resonance Specimen (Source) Anatomical Collection Method Collection Time Re ceived Time Location / / Volume Laterality 04/18/2022 6:10 AM CDT Impressions 04/18/2022 8:36 AM CDT 1. At L5-S1, postsurgical changes of right hemilaminectomy. Small T2 hyperintense fluid collection in the operative bed demonstrates slight extension into the spinal canal. Caudally migrated right centr al/subarticular disc extrusion potential ly impinges traversing right S1 nerve roots. Epidural fat prominence continues to complete thecal sac effacement. 2. At L4-5, posterior disc bulge and epi dural fat prominence contribute to severe thecal sac narrowing. Dictated by Ricky Saeed MD @ 04/18/20 8:36:43 AM (Electronically Signed) Narrative 04/18/2022 8:36 AM CDT For Patients: ??As a result of the Century Cures Act, medical imaging exams and procedure report s are released immediately into your [facility] record. ??You may view this report before your referring provider. ??If you have questions, please contact your health care provider. INDICATION: Low back pain. Cauda equina syndrome raya pected. TECHNIQUE: Multiplanar multisequence noncontrast MR images acquired through the lumbar spine. COMPARISON: None. 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 Slight leftward lumbar curvature. Lumbar lordosis is preserved. Vertebral heights are maintained. No acute fracture or spondylolisthes is. No concerning T1 hypointense marrow replacing lesions or significant marrow edema. Normal conus terminates at L1. T12-L1 and L1-2: No spinal canal or neur al foraminal narrowing. L2-3: Dorsal epidural fat prominence mil dly narrows the thecal sac. No neural foraminal narrowing. L3-4: Dorsal epidural fat prominence mod erately narrows the thecal sac. No neural foraminal narrowing. L4-5: Moderate disc degeneration. Rn Clinical Coordinator ior disc bulge. Dorsal epidural fat prominence and small fluid in the dorsal epidural space. Mild facet arthropathy. Severe thecal sac narrowing. No neural foraminal narrowing. L5-S1: Postsurgical changes of recent ri ght hemilaminectomy. Small T2 hyperintense, T1 hypointense fluid collection in the operative bed measuring approximately up to 2.9 cm in anteroposterior dimension demonstrates slight extension into the spinal canal. Edema within the right greater left paraspinal soft tissues. Moderate disc degeneration. Right central/subarticular disc extrusion measuring 5 mm in short axis and demonstrating slight cau valdemar migration contacts and potentially impinges traversing right S1 nerve roots. Mild facet arthropathy. Epidural fat prominence contributes to complete effacemen t of the thecal sac. Mild bilateral neur al foraminal narrowing. Procedure Note Ricky Saeed MD - 04/18/2022F ormatting of this note might be different from the original. For Patients: As a result of the ntury Cures Act, medical imaging exams and procedure reports are released immediately into your electronic medical record. You may view this report before your referring provider. If you have questions, please contact [facility] health care provider. INDICATION: Low back pain. Cauda equina syndrome raya pected. TECHNIQUE: Multiplanar multisequence noncontrast MR images acquired through the lumbar spine. COMPARISON: None. 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 Slight leftward lumbar curvature. Lumbar lordosis is preserved. Vertebral heights are maintained. No acute fracture or spondylolisthesis. No concerning T1 hypointense marrow replacing lesions or significant marrow edema. Normal conus terminates at L1. T12-L1 and L1-2: No spinal canal or neur al foraminal narrowing. L2-3: Dorsal epidural fat prominence mil dly narrows the thecal sac. No neural foraminal narrowing. L3-4: Dorsal epidural fat prominence mod erately narrows the thecal sac. No neural foraminal narrowing. L4-5: Moderate disc degeneration. Rn Clinical Coordinator ior disc bulge. Dorsal epidural fat prominence and small fluid in the dorsal epidural space. Mild facet arthropathy. Severe thecal sac narrowing. No neural foraminal narrowing. L5-S1: Postsurgical changes of recent ri ght hemilaminectomy. Small T2 hyperintense, T1 hypointense fluid collection in the operative bed measuring approximately up to 2.9 cm in anteroposterior dimension demonstrates slight extension into the s natalie canal. Edema within the right greater left paraspinal soft tissues. Moderate disc degeneration. Right central/subarticular disc extrusion measuring 5 mm in short axis and demonstrating slight caudal migration co ntacts and potentially impinges traversing right S1 nerve roots. Mild facet arthropathy. Epidural fat prominence contributes to complete effacement of the thecal sac. Mild bilateral neural foraminal narrowing. IMPRESSION: 1. At L5-S1, postsurgical changes of rig ht hemilaminectomy. Small T2 hyperintense fluid collection in the operative bed demonstrates slight extension into the spinal canal. Caudally migrated right central/subarticular disc extrusion pote ntially impinges traversing right S1 nerve roots. Epidural fat prominence continues to complete thecal sac effacement. 2. At L4-5, posterior disc bulge and epi dural fat prominence contribute to severe thecal sac narrowing. Dictated by Ricky Saeed MD @ 04/18/20 22 8:36:43 AM (Electronically Signed) [facility] MR (ABNORMAL) CBC W PLT NO DIFF (04/18/2022 4:35 AM CDT) [facility] Method Time Signature WHITE BLOOD 11.9 (H) 4.5 - 11.0 04/18/2022 [facility] COUNT thou/cu mm 4:54 AM CDT LAB[facility]ATORY[facility] TRAL LABORATORY RED BLOOD COUNT 4.60 4.30 - 04/18/2022 [facility] 5.90 4:54 AM CDT LABORATORY-[facility] mil/cu mm TRAL LABORATORY HEMOGLOBIN 13.6 13.5 - 04/18/2022 [facility] 17.5 g/dL 4:54 AM CDT LAB[facility] TRAL LABORATORY HEMATOCRIT 39.8 37.0 - 04/18/2022 [facility] 53.0 % 4:54 AM CDT [facility] TRAL LABORATORY MCV 87 80 - 100 04/18/2022 [facility] fL 4:54 AM CDT [facility] TRAL LABORATORY MCH 29.6 26.0 - [facility] pg 4:54 AM CDT [facility] TRAL LABORAT[facility] MCHC 34.2 32.0 - 04/18/2022 [facility] 36.0 g/dL 4:54 AM CDT [facility] TRAL LABORATORY RDW 12.3 11.5 - 04/18/2022 [facility] 15.5 % 4:54 AM CDT [facility] TRAL LABORATORY PLATELET COUNT 313 140 - 440 04/18/2022 [facility] thou/cu mm 4:54 AM CDT [facility] TRAL LABORATORY MPV 9.2 6.5 - 11.0 04/18/2022 [facility] fL 4:54 AM CDT [facility] TRAL LABORAT[facility] NRBC 0.0 % 04/18/2022 [facility] 4:54 AM CDT [facility] TRAL LABORATORY ABS NRBC 0.0 thou /cu 04/18/2022 [facility] mm 4:54 AM CDT [facility] TRAL [facility] Specimen Anatomical Collection Method / Collection Time Recei maddy Time (Source) Location / Volume Laterality Blood BLOOD SPECIMEN / Venipuncture / 04/18/2022 4:35 2021 4:49 Unknown Unknown AM CDT AM CDT [facility] Performing Organization Address City/State/ZIP Code Phon e Number [facility] [address] [place] [address] LABORATORY-CENTRAL 2000 LABORATORY (ABNORMAL) BASIC METABOLIC PANEL (04/18/2022 4:35 AM CDT) Analysis Performed At Patho logist Time Signature SODIUM 139 135 - 145 04/18/2022 [facility] mmol/L 5:16 AM CDT [facility] TRAL LABORATORY POTASSIUM 3.7 3.5 - 5.0 04/18/2022 [facility] mmol/L 5:16 AM CDT [facility] TRAL [facility] CHLORIDE 107 98 - 110 04/18/2022 [facility] mmol/L 5:16 AM CDT [facility] TRAL LABOR[facility] CO2,TOTAL 26 21 - 31 04/18/2022 [facility] mmol/L 5:16 AM CDT [facility] TRAL LABORATORY ANION GAP 6 5 - 18 04/18/2022 [facility] 5:16 AM CDT [facility] TRAL LAB[facility]ATORY GLUCOSE 101 (H) 65 - 100 04/18/2022 [facility] mg/dL 5:16 AM CDT [facility] TRAL LABORATORY CALCIUM 9.3 8.5 - 10.5 04/18/2022 [facility] mg/dL 5:16 AM CDT [facility] TRAL LABORATORY BUN 14 8 - 25 04/18/2022 [facility] mg/dL 5:16 AM CDT [facility] TRAL LABORATORY CREATININE 0.98 0.72 - 04/18/2022 [facility] 1.25 mg/dL 5:16 AM CDT [facility] TRAL LABORATORY BUN/CREAT RATIO 14 10 - 20 04/18/2022 [facility] 5:16 AM CDT [facility] TRAL LABORATORY eGFR >90 >90 04/18/2022 [facility] mL/min/1.7 5:16 AM CDT LAB[facility]ATORY[facility] 3m2 TRAL LABORATORY Comment: As of 2021, eGFR is calcu lated by the CKD-EPI creatinine equation without race adjustment. eGFR can be inf luenced by muscle mass, exercise, and diet. The reported eGFR is an estimation only and is only applicable if the renal function is stable. Specimen Anatomical Collection Method / Collection Time Recei maddy Time (Source) Location / Volume Laterality Blood BLOOD SPECIMEN / Venipuncture / 04/18/2022 4:35 2021 4:49 Unknown Unknown AM CDT AM CDT [facility]STR[facility] Performing Organization Address City/State/ZIP Code Phon e Number [facility] [address] [address] LABORATORY-CENTRAL 2000 LABORATORY XR SPINE 1 VIEW PORTABLE (04/16/2022 8:32 AM CDT) Anatomical Region Laterality Modality Spine, CERVICAL SPINE, THORACIC SPINE, LUMBAR SPINE Digital Radiography Specimen (Source) Anatomical Collection Method Collection Time Re ceived Time Location / / Volume Laterality 04/16/2022 11:09 AM CDT Narrative 04/16/2022 11:09 AM CDT For Patients: ??As a result of the Cures Act, medical imaging exams and procedure report s are released immediately into your [facility] medical record. ??You may view this report before your referring provider. ??If you have questions, please contact your health care provider. INDICATIONS: Spinal localization. TECHNIQUE: Single lateral view of the lumbar spine. FINDINGS: Localizer posterior to L5. Dictated by Waldo Schaefer MD @ Apr 16 2022 11:09AM (Electronically Signed) ?? Procedure Note Waldo Schaefer MD - 2 For Patients: As a result of the ntury Cures Act, medical imaging exams and procedure reports are released immediately into your electronic medical record. You may view this report before your referring provider. If you have questions, please contact yo health care provider. INDICATIONS: Spinal localization. TECHNIQUE: Single lateral view of the lumbar spine. FINDINGS: Localizer posterior to L5. Dictated by Waldo Schaefer MD @ Apr 16 2022 11:09AM (Electronically Signed) Genny Caraballo MD GENERAL IMAGING HCHG TUBE PR1, HCHG STYLET PR1, HCHG MOUTHPIECE PR1 (04/16/2022 7:43 AM CDT) Narrative Karen Flores CRNA - 04/16/2022 7:4 3 AM CDT Karen Flores CRNA ? 04/16/2022 ??7:43 AM Procedure: ETT Patient location during procedure: OR ETT Properties Mask Ventilation: easy and oral airway Final Technique: direct laryngoscopy Type: straight Location: oral Cuffed: yes Tube Size: 7.5 mm Stylet: yes Blade Size: 3 Cormack-Lehane Grade View: 2 Insertion Attempts: 1 Placement Verification: auscultation, en d tidal CO2 and symmetrical chest wall movement Assessment: pharynx clear, atraumatic an d dentition unchanged Secured at: 23 Measured From: lips Tooth guard used and removed: yes Bite Block: soft Difficulty: 0 (not difficult) Electronically signed by Karen Flores CRNA ? Karen Flores CASK MAKER ANESTHESIA PX NOTE ORDERABLE S GLUCOSE METER (04/16/2022 6:59 AM CDT) P athologist Signature GLUCOSE METER 95 65 - 100 04/16/2022 [facility] mg/dL 7:19 AM CDT LABORATORY-CENT RAL LABORATORY Specimen Anatomical Collection Method Collection Time Receive d Time (Source) Location / / Volume Laterality Blood BLOOD SPECIMEN / 04/16/2022 6:59 AM 04/16 7:19 Unknown CDT AM CDT Genny Caraballo MD CHEMISTRY Performing Organization Address City/State/ZIP Code Phon e Number [facility] [address] [place] [address] LABORATORY-CENTRAL 2000 LABORATORY SCAN-CARDIAC STRIP (04/16/2022 12:00 AM CDT) Narrative 04/16/2022 12:00 AM CDT This result has an attachment that is no t available. Ordered by an unspecified provider. Other Clinical Staff OTHER SCAN CORRESP-LABORATORY RESULTS (04/15/2022 12:00 AM CDT) Narrative 04/15/2022 12:00 AM CDT This result has an attachment that is no t available. Ordered by an unspecified provider. Other Clinical Staff OTHER from Last 3 Months Insurance Payer Benefit Plan / Subscriber ID Effective Dates Phone Addre ss Type Group PREFERRED ONE PREFERRED ONE [id number] 2019-Present [address] [place] [address] Advance Directives Latest Code Status on File Code Status Date Activated Date Inactivated Comments Full Code 04/18/2022 11:25 AM 04/20/2022 2:44 PM Code Status Discussion: Unable to Assess Preferences, Provid er to review later Full Code 04/17/2022 11:43 AM 04/17/2022 5:36 PM Code Status Discussion: Reviewed Preferences Full Code 04/17/2022 11:43 AM 04/17/2022 11:43 AM Code Status Discussion: Reviewed Preferences Full Code 04/16/2022 10:37 AM 04/17/2022 11:43 AM Code Status Discussion: Unable to Assess Preferences, Provid er to review later Care Teams Vault Maker Relationship Specialty Start Date End Date Fernando [facility] PCP - General 01/03/[address] [place] [address]
== END 2022-05-05 09:21 | disposition home or self-care (01) ==
LOC: WOUND 09:21
PROVIDERS: PCP Internal Medicine; Visit Provider Surgery
DX: T81.42XA Infection following a procedure, deep incisional surgical site, initial encounter (principal)
CPT/HCPCS: 97597; 99213

== ENCOUNTER 2022-05-12 08:42 | Outpatient (CLI) | payer OTHER, SELFPAY ==
--- OUTSIDE RECORDS SUMMARY | 2022-05-12 08:44 | XMS_ITS | Clinical Summary ---
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 [id number] Primary Physician: [facility] Admission Date: 04/18/2022 Discharge Date: 04/20/2022 BRIEF HOSPITAL COURSE: Mr. Chan Alvarez is a 32 y .o. who underwent Right sided L5-S1 hemilaminotomy, diskectomy on 04/16/[address] Caraballo, discharged to home on 04/17/22. He returned to [facility] on 04/18/22 with new pain and par esthesias, along with diffic ulty starting urine stream. MRI was completed, shows postop changes. Patient appears to have hematoma in discectomy area space versus recurrence. At time of surgery, nerve wa s completely free with excur brian. Patient received corticosteroids with significant relief in symptoms. He was discharged from [facility] to home. PRINCIPAL DIAGNOSIS CAUSING ADMISSION: post-op pain DISCHARGE MEDICATIONS Your Home Medicines START taking these medicines Instructions cyclobenzaprine 5 mg tablet For diagnoses: Postoperative pain after spinal surgery Commonly known as: FLEXERIL Take 1 Tablet (5 mg) by gael th three times daily. ibuprofen 200 mg tablet For diagnoses: Postoperative pain after spinal surgery Commonly known as: ADVIL; MO TL Take 3 Tablets (600 mg) by mouth every 6 hours if needed for Pain. Maximum of 3200 mg in 24 hours. Walker For diagnoses: Spinal stenos is of lumbar region, unspecified whether neurogenic claudication present Walker with front wheels fo r home use for 3 months. CONTINUE taking these medici roshan Instructions acetaminophen 500 mg tablet For diagnoses: Postoperative pain Commonly known as: TYLENOL E XTRA STRGTH Take 2 Tablets (1,000 mg) b y mouth every 6 hours if needed for Pain. Max acetaminophen dose: 4000mg in 24 hrs. albuterol HFA 90 mcg/actuati on inhaler Commonly known as: PRO-AIR; VENTOLIN; PROVENTIL INHALE 2 PUFFS BY MOUTH LISA RY 4 TO 6 HOURS NEEDED FOR WHEEZING/DIFFICULT BREATHING clobetasol cream 0.05% 0.05 % cream Commonly known as: TEMOVATE Apply topically to affected area(s) once weekly. Uses on weekends EPINEPHrine 0.3 mg/0.3 mL au to-injector Commonly known as: EPIPEN Inject 1 pen intramuscular each time if needed for Allergic Reaction. escitalopram oxalate 20 mg t ablet Commonly known as: LEXAPRO Take 20 mg by mouth once da lorin. gabapentin 300 mg capsule Commonly known as: NEURONTIN Take 300 mg by mouth two ti mes daily. levocetirizine 5 mg Tab tabl et Commonly known as: XYZAL Take 5 mg by mouth once emani ly. methocarbamoL 750 mg tablet For diagnoses: Postoperative pain Commonly known as: ROBAXIN Take 1 Tablet (750 mg) by m outh every 6 hours if needed for Muscle Spasm. omeprazole 20 mg tablet Take 20 mg by mouth once da lorin. oxyCODONE 5 mg immediate rel ease tablet For diagnoses: Postoperative pain Commonly known as: ROXICODON E Take 1 to 2 tablets (5-10 m g) by mouth every 4 hours if needed for severe pain. ruxolitinib 1.5 % Crea Apply topically to affected area(s) at bedtime. To hands Senexon-S (8.6-50 mg) tablet For diagnoses: Constipation, unspecified constipation type Generic drug: sennosides-doc usate Take 1-4 Tablets by mouth t wo times daily. STOP taking these medicines diazePAM 5 mg tablet Commonly known as: VALIUM Where to get your medicines These medications were sent to [facility] [address] [place] [id number] Hours: Open 24 Hours ?? cyclobenzaprine 5 mg tabl et You have received printed pr escription(s) for these medicines or supplies. Take these to your preferred pharmacy. Bring a paper prescription f or each of these medications ?? Walker Prescriptions for these medi cines or supplies were NOT printed nor sent to your preferred pharmacy. Check with your doctor if you have questions. Check with your doctor if yo u have questions. ?? ibuprofen 200 mg tablet FOLLOW-UP: He should return to clinic i n 6 weeks or as scheduled Additional followup: NA Physical Examination: Appears comfortable Alert and oriented. Appropri ate. Pleasant mood. Incision covered - clean and dry Motor exam: Grossly intact symmetrically against moderate resistance in BLE along: Quads/Hamsrings/TA/ EHL/GS Sensory exam: Intact to light touch symmet rically throughout the BLE. Vascular exam: Distal pedal pulses intact t o palpation symmetrically in BLE. No significant distal edema in BLE. Abdomen: soft, non-tender No sustained beats of ankle clonus. No calf tenderness to palpat ion. SCDs in place. PROCEDURES PERFORMED DURING HOSPITALIZATION: COMPLICATIONS IN HOSPITAL: N A IMPORTANT PENDING TEST RESUL TS: NA PERTINENT FINDINGS/RESULTS A T DISCHARGE: NA After Discharge Orders and I nstructions Additional information abou t your medicines: Prescription Pain Medicine: - When at home, alternate Ty lenol and your prescription pain medication (oxycodone, hydromorphone, morphine, tramadol) for better control of breakthrough pain. Alternating between the two types of medications helps control pain better. - Do not drink alcohol while taking prescription pain medicine. - Do not drive any motor veh icles while taking prescription pain medicines or any medicines that make you sleepy. - Take the medicine at the t gabo of the day when you most often feel pain. This may be: when you wake up in the morning, before you start certain activities, or when you are ready for bed. Cutting back strategies: - As your pain decreases, yo u can go for longer times between doses (from 4 hours to 6 or 8 hours). - Reduce dose by taking a sm aller amount per dose, such as 1 pill instead of 2 or ?? instead of 1, especially for Opioid medications. - Start decreasing pain medi cine as your pain decreases. Tylenol: (acetaminophen) - When at home, alternate Ty lenol and your prescription pain medication (oxycodone, hydromorphone, morphine, tramadol) for better control of breakthrough pain. Alternating the two medications helps with breakthrough pain. - Many pain medicines have a cetaminophen in them. Do not take more than 3,000 to 4,000 milligrams (3-4 grams) of acetaminophen in 24 hours (more than that could damage your liver) - Acetaminophen is also foun d in cough and cold medicines. What if the above strategies do not control your pain? If the above solutions do not help, contact your surgeon. Additional information abou t your medicines: Make sure you are taking st ool softeners while you are taking prescription pain medications (narcotics), to prevent constipation. After Hospital Follow Up Ap pointment(s) Please follow up with Naren Salinas* at [facility] in 4-6 weeks. If you follow with your surg marshal at [facility], call [phone] for questions, or to make an appointment. If you follow with your surg marshal at [facility], please call [facility] at [phone] When to follow up: 4 to 6 w eeks Caring for your wound or in cision: - Steri Strips will fall of f on their own; do not remove them. - No need to cover your inci brian. - You may take a shower. It is okay to get the incision wet. Do not scrub the incision. Gently pat it dry. - Do not soak, rub, or scrat ch the incision. - DO NOT put any ointment, c ream, or lotions on the incision for 6 weeks. - IF the incision starts dr lei, do not get it wet. Please cover it with gauze and call the surgeon at [phone]. Information about NSAIDS NSAIDs (Non-Steroidal Anti- Inflammatories): A) For fusion surgeries: - If your surgeon approves u se of NSAIDs, you may take non steroid anti- inflammatory drugs such as Ibuprofen (Advil??, Motrin??), Relafen??, Naproxen (Aleve??) for a period of 3-5 days for breakthrough pain especially after supply of Opioid medications is completed. Do not take these medications unless your surgeon approved it, as these medicines may interfere with bone healing. B) For decompression surgeri es: - If you took medications denney ch as Ibuprofen (Advil??, Motrin??), Relafen??, Naproxen (Aleve??), Celebrex?? before surgery, this can be resumed 72 hours after surgery. Do not take if you have been told by a physician to avoid these medications. Information about smoking a nd healing: - DO NOT SMOKE - nicotine interferes with t he healing process - accept help from family an d friends Information about your medi cation refills: For Opioid medication refil ls: - Be sure to call your surge on for refills at least 24 hours prior to need (prescription pain medications may need more time, as a written prescription is needed for refills). MEDICATIONS cannot be refi lled on weekends or holidays , or after 4:00 p.m. during the week. Moving around after your ho spital visit: - do not bend, twist, lift or sit for long periods of time - No lifting more than 5 doron nds - do not put your head below the level of your heart - walking is a very importan t part of your recovery - walk a little further each day - it is best to walk on leve l ground - do not use stair climbing for exercise - you may climb stairs as ne eded, but not for exercise - YOUR ONLY EXERCISE PROGRAM RIGHT NOW IS WALKING - follow your physical thera py or rehabilitation program as instructed by your surgeon - follow specific exercise p williamram outlined in the spine manual by your surgeon, therapist, financial aid counselor - stay away from hot tubs, t ub baths, pools, lakes until your surgeon has given you the OK - shower as directed by your health care provider Primary Care Provider ana w up appointment(s) Follow up with your Primary Care Provider in 5 days When to follow up: 1 to 5 d ays Recommendations for outpati ent provider Specific recommendations to be addressed at the follow up visit - routine post-op visit Reason(s) medications were s topped or changed - Anticoagulation/Oxygen Recom mendations - Tests and Studies needed - Remove dressing, then leave open to air: If you leave the hospital w ith a dressing over your incision, you can remove this when you get home. If your incision begins to drain, cover and call the office for further instructions. What you may eat and drink after your hospital stay: DIET: - eat a nutritionally well-b alanced diet - eat small amounts more oft en - less physical activity, denney rgery and medication can cause constipation - increase fiber (fruits, wh ole grains and raw vegetables) and fluids - drink 6-8 glasses of water per day to prevent constipation When should you be concerne d? Your surgeon is Qamar Cui* Please call your surgeon if you have any of the following: - temperature above 101.6 de grees Fahrenheit - nausea and vomiting that w ill not stop - severe uncontrolled pain - redness, tenderness, drain age from the incisional area that will not stop, or signs of infection (pain, swelling, redness, unpleasant odor, warmth, or green or yellow discharge around the site) - severe headache - visual disturbances - dizziness or lightheadedne ss that will not stop - hives (itchy raised rash) - difficulty breathing - extreme fatigue (cannot ge t out of bed) - any change in sensation denney ch as new numbness or tingling - any change in movement suc h as new weakness or inability to move arms or legs as usual - new confusion - any change or loss in kamron l or bladder function - burning or urgency on urin ation - if no bowel movement in th ree (3) days - chest pain - if any worries about the f it of your brace - any other questions or wor drew you may have after discharge - in an emergency, CALL 911 or go to an Emergency Department at a nearby hospital Why were you at the [facility]? The reason you were in the hospital is for spine surgery. Your incision was closed wi th: - Steri Strips; they will f all off on their own; do not remove them. Total time spent for dischar ge on date of discharge: 20 minutes Anh Osborn CNP [facility] OSITION PLAYER 04/18/2022 Travel 04/16/2022 Anesthesia Event Decresce, MD Sandra Macias Anna A, AS400 OPERATOR 04/16/2022 Surgery Genny Caraballo DECOMPRESSION- MD [place] HEMILAMINOTOMY/ DISCECTOM Y L4-S1 04/16/2022 - Hospital Encounter Genyn Caraballo Postopera tive pain (Primary Dx); 04/17/2022 MD [place] Constipation, u nspecified constipation type 04/16/2022 Travel 04/14/2022 Travel 03/02/2022 Telephone Center, [place] Referral (Rec eived Pain injection refer ral from [facility]) from Last 3 Months Immunizations Name Administration [...] (04/18/2022 8:50 AM CDT) Analysis Performed At [facility] logist Time Signature COVID 19 Negative Negative 04/18/2022 [facility] 12:03 PM CDT LABORATORY-[facility] MOLECULAR TRAL LABORATORY [...] AM CDT STRUCTURE / Unknown Narrative [facility] LABORATORY-CENTRAL LABORAT ORY - 04/18/2022 12:03 [...] sooner. Deniz GRUBER MICROBIOLOGY Performing Organization Address City/[facility]/ZIP Code Phon e Number [facility] [address] [place] [id number] LABORATORYCENTRAL [facility] LABORATORY COVID 19 COLLECTION (04/18/2022 8:50 AM CDT) [facility] Method Time Signature TESTING [facility] 04/18/2022 [facility] LABORATORY Laboratory 8:56 AM CDT LABORATORY-CE NTRAL LABORATORY Comment: Specimen submitted to [facility] for testing. Specimen Anatomical Location / Collection Method Collection Kj e Received Time (Source) Laterality / Volume Other SPECIMEN FROM Non-Blood / 04/18/2022 8:50 04/18/2022 8:56 NASOPHARYNGEAL Unknown AM CDT AM CDT STRUCTURE / Unknown Deniz GRUBER SEND OUTS Performing Organization Address [facility]/ZIP [facility] Phon e Number [facility] [address] [place] [id number] LABORATORY-CENTRAL 2000 LABORATORY MR Lumbar Spine wo Contrast (04/18/2022 [...] s are released immediately into your adriana [facility]tronic medical record. ??You may view this report [...] neural foraminal narrowing. L4-5: Moderate disc degeneration. [employer] Sales Associate ior disc bulge. Dorsal epidural fat prominence [...] questions, please contact yo health care provider. INDICATION: Low back pain. [...] neural foraminal narrowing. L4-5: Moderate disc degeneration. [employer] Associate ior disc bulge. Dorsal epidural fat prominence [...] MD @ 04/18/20 8:36:43 AM (Electronically Signed) [facility] GRUBER MR (ABNORMAL) CBC W PLT NO DIFF (04/18/2022 4:35 AM CDT) [facility] gist Method Time Signature WHITE BLOOD 11.9 (H) 4.5 - 11.0 04/18/2022 [facility] COUNT thou/cu mm 4:54 AM CDT LABORATORY-[facility] TRAL LABORATORY RED BLOOD COUNT 4.60 4.30 - 04/18/2022 [facility] 5.90 4:54 AM CDT LABORAT[facility] mil/cu mm TRAL LABORATORY HEMOGLOBIN 13.6 13.5 - 04/18/2022 [facility] 17.5 g/dL 4:54 AM CDT LABORATORY-[facility] TRAL LABORATORY HEMATOCRIT 39.8 37.0 - 04/18/2022 [facility] 53.0 % 4:54 AM CDT LABORATORY[facility] TRAL LABORATORY MCV 87 80 - 100 04/18/2022 [facility] [place] fL 4:54 AM CDT LABORATORY-[facility] TRAL LABORATORY MCH 29.6 26.0 - 04/18/2022 [facility] 34.0 pg 4:54 AM CDT LABORATORY-[facility] TRAL LABORATORY MCHC 34.2 32.0 - 04/18/2022 [facility] 36.0 g/dL 4:54 AM CDT LABORATORY[facility] TRAL LABORATORY RDW 12.3 11.5 - 04/18/2022 [facility] 15.5 % 4:54 AM CDT LAB[facility] TRAL LABORATORY PLATELET COUNT 313 140 - 440 04/18/2022 [facility] thou/cu mm 4:54 AM CDT LABORATORY-[facility] TRAL LABORATORY MPV 9.2 6.5 - 11.0 04/18/2022 [facility] fL 4:54 AM CDT LABORATORY-[facility] TRAL LABORATORY NRBC 0.0 % 04/18/2022 [facility] 4:54 AM CDT LABORATORY-[facility] TRAL LABORATORY ABS NRBC 0.0 thou /cu 04/18/2022 [facility] mm 4:54 AM CDT LABORATORY-[facility] TRAL LABORATORY Specimen Anatomical Collection Method / Collection Time Recei maddy Time (Source) Location / Volume Laterality Blood BLOOD SPECIMEN / Venipuncture / 04/18/2022 4:35 2021 4:49 Unknown Unknown AM CDT AM CDT [facility] GRUBER HEMATOLOGY Performing Organization Address City/State/ZIP Code Phon e Number [facility] [address] [place] [address] LABORATORY-CENTRAL 2000 LABORATORY (ABNORMAL) BASIC METABOLIC PANEL (04/18/2022 4:35 AM CDT) Analysis Performed At [facility] logist Time Signature SODIUM 139 135 - 145 04/18/2022 [facility] mmol/L 5:16 AM CDT LABORATORY-[facility] TRAL LABORATORY POTASSIUM 3.7 3.5 - 5.0 04/18/2022 [facility] mmol/L 5:16 AM CDT LABORATORY[facility] TRAL LABORATORY CHLORIDE 107 98 - 110 04/18/2022 [facility] mmol/L 5:16 AM CDT LABORATORY-[facility] TRAL LABORATORY CO2,TOTAL 26 21 - 31 04/18/2022 [facility] mmol/L 5:16 AM CDT LABORATORY[facility] TRAL LABORATORY ANION GAP 6 5 - 18 04/18/2022 [facility] 5:16 AM CDT LAB[facility] TRAL LABORATORY GLUCOSE 101 (H) 65 - 100 04/18/2022 [facility] mg/dL 5:16 AM CDT LABORATORY[facility] TRAL LABORATORY CALCIUM 9.3 8.5 - 10.5 04/18/2022 [facility] mg/dL 5:16 AM CDT LABORATORY[facility] TRAL LABORATORY BUN 14 8 - 25 04/18/2022 [facility] mg/dL 5:16 AM CDT LABORATORY[facility] TRAL LABORATORY CREATININE 0.98 0.72 - 04/18/2022 [facility] 1.25 mg/dL 5:16 AM CDT LABOR[facility] TRAL LABORATORY BUN/CREAT RATIO 14 10 - 20 04/18/2022 [facility] 5:16 AM CDT LAB[facility]ATORY[facility] TRAL LABORATORY eGFR >90 >90 04/18/2022 [facility] mL/min/1.7 5:16 AM CDT LABORATORY-[facility] 3m2 TRAL [...] Organization Address City/State/ZIP Code Phon e Number [facility] [address] [place] [address] LABORATORY-CENTRAL 2000 LABORATORY XR SPINE 1 VIEW [...] s are released immediately into [facility]. ??You may view this report [...] For Patients: As a result of the Cures Act, medical imaging exams and procedure reports are released immediately into your electronic medical record. You may view this report before your referring provider. If you have questions, please contact [facility] health care provider. INDICATIONS: Spinal localization. TECHNIQUE: [...] by Karen Flores CRNA ? Karen Flores CRNA ANESTHESIA PX NOTE ORDERABLE S GLUCOSE METER (04/16/2022 6:59 AM CDT) P athologist Signature GLUCOSE METER 95 65 - 100 04/16/2022 [facility] mg/dL 7:19 AM CDT LABORATORY-CENT RAL LABORATORY Specimen Anatomical Collection Method Collection Time Receive d Time (Source) Location / / Volume Laterality Blood BLOOD SPECIMEN / 04/16/2022 6:59 AM 04/16 7:19 Unknown CDT AM CDT Genny Caraballo MD CHEMISTRY Performing Organization Address City/State/ZIP Code Phon e Number [facility] [address] [place] [address] LABORATORY-CENTRAL 2000 LABORATORY SCAN-CARDIAC STRIP (04/16/2022 12:00 [...] ss Type Group PREFERRED ONE PREFERRED ONE [id number] 2019-Present [address] [place] [address] [place] [facility] [place] [address] Advance Directives Latest Code Status on File [...] Provid er to review later Care Teams Car Installations Supervisor Relationship Specialty Start Date End Date [facility] PCP - General 01/03/07 [address] [place] [address]
== END 2022-05-12 08:43 | disposition home or self-care (01) ==
LOC: WOUND 08:42
PROVIDERS: PCP Internal Medicine; Visit Provider Surgery
DX: T81.42XA Infection following a procedure, deep incisional surgical site, initial encounter (principal)
CPT/HCPCS: 97597

== ENCOUNTER 2022-05-19 08:32 | Outpatient (CLI) | payer OTHER, SELFPAY ==
--- OUTSIDE RECORDS SUMMARY | 2022-05-19 08:34 | XMS_ITS | Clinical Summary ---
:1990 Author Organization [employer] [place] [address] Care Team Providers Name Role Phone Unavailable Primary Care Provider Unavailable Allergies Active Allergy Reactions Severity Noted Date Comments Amlin Oil Throat Swelling/Closing Low 02/07/2007 [place] Nut Anaphylaxis High 04/14/2022 Tree Nut Anaphylaxis [...] times Postoperative pain daily. after spinal surgery diazePAM (VALIUM) 5 Take 5 mg by 0 Discontinued mg tablet mouth every 6 2 022 (*IP hours if needed. Dis continued) Active Problems Problem Noted Date Anxiety 04/16/2022 [...] Collin Robert, PA [place], Jonathan Sanford, MD [facility] Naren Cui MD Discharge Summary - Anh OsbornBRYANT - 05/10/2022 4:53 PM CST HOSPITAL DISCHARGE SUMMARY Patient Name: Chan Alvarez Date of : 1990 Age : 32 y.o. [id number] Primary Physician: [facility] Admission Date: 04/18/2022 Discharge Date: 04/20/2022 BRIEF HOSPITAL COURSE: Mr. Chan Alvarez is a 32 y .o. who underwent Right sided L5-S1 hemilaminotomy, diskectomy on 04/16/[address] Caraballo, discharged to home on 04/17/22. He returned to [facility] on 04/18/22 with new pain and par esthesias, along with diffic ulty starting urine stream. MRI was completed, shows postop changes. Patient appears to have hematoma in discectomy area space versus recurrence. At time of surgery, nerve wa s completely free with excur brian. Patient received corticosteroids with significant relief in symptoms. He was discharged from [facility] to home. PRINCIPAL DIAGNOSIS CAUSING ADMISSION: post-op [...] your medicines These medications were sent to [facility] [address] [address] Hours: Open 24 Hours ?? cyclobenzaprine 5 [...] Please follow up with Naren Salinas* at [facility] in 4-6 weeks. If you follow with your surg marshal at [facility], call [phone] for questions, or to make an appointment. If you follow with your surg marshal at [facility], please call [facility] Orthopedic Center at [phone] When to follow up: 4 to 6 [...] with gauze and call the surgeon at [phone]. Information about NSAIDS NSAIDs (Non-Steroidal Anti- Inflammatories): [...] your surgeon - follow specific exercise p shayy outlined in the spine manual by your surgeon, therapist, correctional officer chief - stay away from hot tubs, t [...] nearby hospital Why were you at the [facility]? The reason you were in the hospital is for spine surgery. Your incision was closed wi th: - Steri Strips; they will f all off on their own; do not remove them. Total time spent for dischar ge on date of discharge: 20 minutes Anh Osborn CNP [facility] RVISOR WATERPROOFING 04/18/2022 Travel 04/16/2022 Anesthesia Event DecreEdward luo MD Zimmerman, Anna A, STEVE 04/16/2022 Surgery Genny Caraballo DECOMPRESSION- MD Chayito HEMILAMINOTOMY/ DISCECTOM Y L4-S1 04/16/2022 - Hospital Encounter Genny Caraballo Postopera tive pain (Primary Dx); 04/17/2022 MD Chayito Constipation, u nspecified constipation type 04/16/2022 Travel 04/14/2022 Travel 03/02/2022 Telephone Center, [facility] Referral (Rec eived Pain injection refer ral from [facility]) from Last 3 Months Immunizations Name [...] Assigned at Date Recorded Not on file Obstetrics History Last Filed Vital Signs Vital [...] (04/18/2022 8:50 AM CDT) Analysis Performed At Patho logist Time Signature COVID 19 Negative Negative 04/18/2022 [facility] 12:03 PM CDT LABORATORY-[facility] MOLECULAR TRAL LABORATORY [...] CDT AM CDT STRUCTURE / Unknown Narrative [facility]-CENTRAL LABORAT ORY - 04/18/2022 12:03 PM CDT [...] sooner. Deniz GRUBER MICROBIOLOGY Performing Organization Address City/[facility]/ZIP Code Phon e Number [facility] [address] [place] [address] LABORATORY-[place] [address] LABORATORY COVID 19 COLLECTION (04/18/2022 8:50 AM CDT) [facility] Method Time Signature TESTING [facility] 04/18/2022 [facility] LABORATORY Laboratory 8:56 AM CDT LABORATORY-CE NTRAL LABORATORY Comment: Specimen submitted to [facility] for testing. Specimen Anatomical Location / Collection Method Collection Kj e Received Time (Source) Laterality / Volume Other SPECIMEN FROM Non-Blood / 04/18/2022 8:50 04/18/2022 8:56 NASOPHARYNGEAL Unknown AM CDT AM CDT STRUCTURE / Unknown Deniz GRUBER SEND OUTS Performing Organization Address City/State/ZIP Code Phon e Number [facility] [address] [facility] [facility] [facility] [place] [address] LABORATORY-CENTRAL 2000 LABORATORY MR Lumbar Spine wo [...] s are released immediately into your [facility] medical record. ??You may view this report [...] neural foraminal narrowing. L4-5: Moderate disc degeneration. Punch Press Operator Helper ior disc bulge. Dorsal epidural fat prominence [...] provider. If you have questions, please contact [facility] health care provider. INDICATION: Low back pain. [...] neural foraminal narrowing. L4-5: Moderate disc degeneration. Punch Press Operator Helper ior disc bulge. Dorsal epidural fat prominence [...] PLT NO DIFF (04/18/2022 4:35 AM CDT) [facility] gist Method Time Signature WHITE BLOOD 11.9 (H) 4.5 - 11.0 04/18/2022 [facility] COUNT thou/cu mm 4:54 AM CDT LABORATORY-[facility] TRAL LABORATORY RED BLOOD COUNT 4.60 4.30 - 04/18/2022 [facility] 5.90 4:54 AM CDT LABORATORY-[facility] mil/cu mm TRAL LABORATORY HEMOGLOBIN 13.6 13.5 - 04/18/2022 [facility] 17.5 g/dL 4:54 AM CDT LABORATORY-[facility] TRAL LABORATORY HEMATOCRIT 39.8 37.0 - 04/18/2022 [facility] 53.0 % 4:54 AM CDT LABORATORY-[facility] TRAL LABORATORY MCV 87 80 - 100 04/18/2022 [facility] fL 4:54 AM CDT LABORATORY-[facility] TRAL LABORATORY MCH 29.6 26.0 - 04/18/2022 [facility] 34.0 pg 4:54 AM CDT LABORATORY-[facility] TRAL LABORATORY MCHC 34.2 32.0 - 04/18/2022 [facility] 36.0 g/dL 4:54 AM CDT LABORATORY-[facility] TRAL LABORATORY RDW 12.3 11.5 - 04/18/2022 [facility] 15.5 % 4:54 AM CDT LABORATORY-[facility] TRAL LABORATORY PLATELET COUNT 313 140 - 440 04/18/2022 [facility] thou/cu mm 4:54 AM CDT LABORATORY-[facility] TRAL LABORATORY MPV 9.2 6.5 - 11.0 04/18/2022 [facility] 4:54 AM CDT LABORATORY-[facility] TRAL LABORATORY NRBC 0.0 % 04/18/2022 [facility] 4:54 AM CDT LABORATORY-[facility] TRAL LABORATORY ABS NRBC 0.0 thou /cu 04/18/2022 [facility] mm 4:54 AM CDT LABORATORY-[facility] TRAL LABORATORY Specimen Anatomical Collection Method / Collection Time Recei maddy Time (Source) Location / Volume Laterality Blood BLOOD SPECIMEN / Venipuncture / 04/18/2022 4:35 2021 4:49 Unknown Unknown AM CDT AM CDT [facility] HEMATOLOGY Performing Organization Address City/State/ZIP Code Phon e Number [facility] [address] [place] [address] LABORATORY-CENTRAL 2000 LABORATORY (ABNORMAL) BASIC METABOLIC PANEL (04/18/2022 4:35 AM CDT) Analysis Performed At Path logist Time Signature SODIUM 139 135 - 145 04/18/2022 [facility] mmol/L 5:16 AM CDT LABORATORY-[facility] TRAL LABORATORY POTASSIUM 3.7 3.5 - 5.0 04/18/2022 [facility] mmol/L 5:16 AM CDT LABORATORY-[facility] TRAL LABORATORY CHLORIDE 107 98 - 110 04/18/2022 [facility] mmol/L 5:16 AM CDT LABORAT[facility] TRAL LABORATORY CO2,TOTAL 26 21 - 31 04/18/2022 [facility] mmol/L 5:16 AM CDT LABORAT[facility] TRAL LABORATORY ANION GAP 6 5 - 18 04/18/2022 [facility] 5:16 AM CDT LAB[facility]AT[facility] TRAL LABORATORY GLUCOSE 101 (H) 65 - 100 04/18/2022 [facility] mg/dL 5:16 AM CDT LAB[facility]AT[facility] TRAL LABORATORY CALCIUM 9.3 8.5 - 10.5 04/18/2022 [facility] mg/dL 5:16 AM CDT LAB[facility]AT[facility] TRAL LABORATORY BUN 14 8 - 25 04/18/2022 [facility] mg/dL 5:16 AM CDT LABORATORY-[facility] TRAL LABORATORY CREATININE 0.98 0.72 - 04/18/2022 [facility] 1.25 mg/dL 5:16 AM CDT LABORAT[facility] TRAL LABORATORY BUN/CREAT RATIO 14 10 - 20 04/18/2022 [facility] 5:16 AM CDT LABORATORY-[facility] TRAL LABORATORY eGFR >90 >90 04/18/2022 [facility] mL/min/1.7 5:16 AM CDT LABORATORY-[facility] 3m2 TRAL [...] Organization Address City/State/ZIP Code Phon e Number [facility] [address] [place] [address] LABORATORY-CENTRAL 2000 LABORATORY XR SPINE 1 VIEW [...] s are released immediately into your [facility] medical record. ??You may view this report [...] provider. If you have questions, please contact [facility] health care provider. INDICATIONS: Spinal localization. TECHNIQUE: [...] GLUCOSE METER 95 65 - 100 04/16/2022 [facility] mg/dL 7:19 AM CDT LABORATORY-CENT RAL LABORATORY Specimen Anatomical Collection Method Collection Time Receive d Time (Source) Location / / Volume Laterality Blood BLOOD SPECIMEN / 04/16/2022 6:59 AM 04/16 7:19 Unknown CDT AM CDT Genny Caraballo MD CHEMISTRY Performing Organization Address City/State/ZIP Code Phon e Number [facility] [address] [place] [address] LABORATORY-CENTRAL 2000 LABORATORY SCAN-CARDIAC STRIP (04/16/2022 12:00 [...] ss Type Group PREFERRED ONE PREFERRED ONE [id number] 2019-Present [address] [place] [address] Advance Directives Latest Code Status on File [...]
== END 2022-05-19 08:33 | disposition home or self-care (01) ==
LOC: WOUND 08:32
PROVIDERS: PCP Internal Medicine; Visit Provider Surgery
DX: T81.42XA Infection following a procedure, deep incisional surgical site, initial encounter (principal)
CPT/HCPCS: 99212

== ENCOUNTER 2022-06-25 09:02 | Outpatient (CLI) | payer OTHER, SELFPAY ==
[2022-06-25 11:09] LABS: Albumin* 4.9 g/dL (3.3-5.0)
[2022-06-25 11:10] LABS: Chloride* 105 mmol/L (96-114); Potassium* 4.5 mmol/L (3.6-5.1); Sodium* 141 mmol/L (135-149)
[2022-06-25 11:12] LABS: Bilirubin Total* 0.7 mg/dL (0.1-1.5); Carbon Dioxide* 26 mmol/L (20-32); Cholesterol* 222 mg/dL (90-199); Creatinine* 1.1 mg/dL (0.5-1.5); Estimated Glomerular Filt Rate 90 ml/min; Total Protein* 7.7 g/dL (6.0-8.3)
[2022-06-25 11:13] LABS: Alanine Aminotransferase* 49 U/L (4-50); Alkaline Phosphatase* 77 U/L (40-150); Aspartate Amino Transferase* 34 U/L (12-35); Blood Urea Nitrogen* 18 mg/dL (5-24); Calcium* 9.8 mg/dL (8.4-10.6); Glucose* 91 mg/dL (60-115); HDL Cholesterol* 36 mg/dL (>=40); LDL Cholesterol Calculated 160 mg/dL (<100); Triglycerides* 129 mg/dL (40-149)
== END 2022-06-25 09:03 | disposition home or self-care (01) ==
PROVIDERS: PCP Internal Medicine; Visit Provider Family Medicine
DX: E78.5 Hyperlipidemia, unspecified (principal)
CPT/HCPCS: 80053; 80061

== ENCOUNTER 2022-09-23 09:45 | Outpatient (RCR) | payer OTHER, SELFPAY ==
--- NOTE | 2022-09-28 10:56 | PT.OPDNX ---
PT [facility] Daily Note [facility] Daily Note Start: 08/10/22 15:03 Freq: Status: Active Protocol: Document 09/23/22 09:49 [facility] (Rec: 09/23/22 10:38 [facility] [id number]) E-signed By Yair Willoughby, PT PT OP Daily Progress Note Visit Information Note Type Daily Note,Discharge Note Visit Number 3 Insurance Authorized Visits 4 on POC Insurance Information Insurance Name [employer] Medical Diagnosis H/O lumbar discectomy Back pain M54.9 Dorsalgia, unspecified Z98.890 specified postprocedural states Treating Diagnosis Low back pain M54.50 Muscle weakness M62.[address] Janes Coates Subjective Subjective Back has been feeling good recently. He was sore after the last visit. He is feeling better even after travelling on a plane over this past weekend. He even cooked a pig over the weekend so did a lot of standing. Pain Comments mild Home Exercise Home Exercise Comments Access Code: [email or web address] URL: [email or web address] Date: 09/23/2022 Prepared by: Yair Willoughby Exercises - Supine Lower Trunk Rotation - 1 x daily - 7 x weekly - 1 sets - 10 reps - Supine March - 1 x daily - 4 x weekly - 1 sets - 15-20 reps - Supine Sciatic Nerve [place] - 1 x daily - 7 x weekly - 1 sets - 15-20 reps - Cat Cow - 1 x daily - 7 x weekly - 3 sets - 10 reps - Bird Dog - 1 x daily - 7 x weekly - 1 sets - 10-15 reps - Single Leg Heel Raise - 1 x daily - 4 x weekly - 2 sets - 10 reps - Squat with Chair Touch - 1 x daily - 4 x weekly - 1 sets - 15-20 reps - Supine Core Bicycle - 1 x daily - 4 x weekly - 1 sets - 10-20 reps - Modified [place] Stretch - 1 x daily - 4 x weekly - 1 sets - 1 reps - 1-2 min hold - Quadruped Piriformis Stretch - 1 x daily - 4 x weekly - 1 sets - 1 reps - 60 sec hold - Seated Table Piriformis Stretch - 1 x daily - 4 x weekly - 1 sets - 1 reps - 60 esc hold Objective Patient Instructed in Risks/Benefits Yes Therapeutic Exercise Therapeutic Exercise Minutes (minutes) 25 Therapeutic Exercise: To Restore Reviewed and performed HEP to Functional Status facilitate trunk flexibility, core and LE strength. Texted via [employer]. Access Code: [email or web address] URL: [email or web address] Date: 08/10/2022 Prepared by: Yair Willoughby Exercises Supine Lower Trunk Rotation - 1 x daily - 7 x weekly - 1 sets - 10 reps Supine March - 1 x daily - 4 x weekly - 1 sets - 15-20 reps Supine Sciatic Nerve [place] - 1 x daily - 7 x weekly - 1 sets - 15-20 reps Cat Cow - 1 x daily - 7 x weekly - 31 sets - 10 reps Bird Dog - 1 x daily - 7 x weekly - 1 sets - 10-15 reps Single Leg Heel Raise - 1 x daily - 4 x weekly - 2 sets - 10 reps Squat with Chair Touch - 1 x daily - 4 x weekly - 1 sets - 15-20 reps Reviewed and performed HEP. Added in piriformis stretch in quadruped and standing at bedside. Good stretch felt. Therapeutic Activity Therapeutic Activity Minutes (minutes) 20 Therapeutic Activities Comments work simulated activities such as resisted smoker open/close with use of TRX bar. 40# sled push 200 ft, Instructed in proper lifting technique for create: 0# to 40#, cues for hip hinge, bend knees, etc. Treatment Minutes Timed Code Treatment Minutes 45 Total Treatment Time 45 Billing Units Therapeutic Activity Units 1 Therapeutic Exercise Units 2 Plan of Care Physical Therapy Goals In 3-4 visits (4-6 weeks), pt will: Goals met 09/23/22 1) Demo ability to lift and briefly carry up to 40 lbs painfree 2) Report improved sleep ability in relation to back discomfort, so sleeping through the night 80% of time 3) Be I with comprehensive HEP for trunk flexibility/ core & LE strength Daily Plan of Care Discharge Discharge Note Date of First Visit for Therapy 08/10/22 Date of Last Visit for Therapy 09/23/22 Initial Primary Functional Limitations working his job as pig smoker/ fast food worker Initial Pain Level mild Pain Level at Discharge mild Interventions Provided During Treatment Manual Therapy,Neuromuscular Re-Ed,Therapeutic Activities, Therapeutic Exercise,Self Care /Home Management Recommendations/Reason for Discharge Met All Therapy Goals Discharge Instructions Continue with HEP and to use back protective body mechanics at work and in daily life. Thank You For This Referral Yair Willoughby [phone] PT
== END 2022-09-28 15:36 | disposition home or self-care (01) ==
PROVIDERS: PCP Internal Medicine; Visit Provider Family Medicine
DX: M54.9 Dorsalgia, unspecified (principal); M62.81 Muscle weakness (generalized); Z98.890 Other specified postprocedural states; M54.50 Low back pain, unspecified; Z51.89 Encounter for other specified aftercare
CPT/HCPCS: 97110; 97140; 97161; 97530

== ENCOUNTER 2023-07-04 08:40 | Outpatient (CLI) | payer OTHER, SELFPAY ==
--- OUTSIDE RECORDS SUMMARY | 2023-07-08 07:21 | XMS_ITS | Clinical Summary ---
Author Name Unknown Organization [facility] Address [place], [place] [address] Care Team Providers Care Clam Digger Name Role Phone Unavailable Primary Care Provider Unavailabl e Allergies Active Allergy Reactions Criticality Noted Date Comments [place] Oil Throat Swelling/Closing Low 02/07/2007 [place] Nut Anaphylaxis High 04/14/2022 Tree Nut Anaphylaxis High 04/14/2022 Medications Medication Sig Dispensed Refills Start Date End Date Status albuterol HFA (PRO-AIR; VENTOLIN; PROVENTIL) 90 mcg/actuation inhaler INHALE 2 PUFFS BY MOUTH EVERY 4 TO 6 HOURS NEEDED FOR WHEEZING/DIFFICULT BREATHING 0 06/18/2021 Active clobetasol cream 0.05% (TEMOVATE) 0.05 % cream Apply topically to affected area(s) once weekly. Uses on weekends 0 07/24/2021 Active gabapentin (NEURONTIN) 300 mg capsule Take 300 mg by mouth two times daily. 0 02/15/2022 Active levocetirizine (XYZAL) 5 mg tab tablet Take 5 mg by mouth once daily. 0 Active omeprazole 20 mg tablet Take 20 mg by mouth once daily. 0 Active ruxolitinib 1.5 % creaIndications:ecz therese Apply topically to affected area(s) at bedtime. To hands 0 Active escitalopram oxalate (LEXAPRO) 20 mg tablet Take 20 mg by mouth once daily. 0 12/15/2021 Active EPINEPHrine (EPIPEN) 0.3 mg/0.3 mL auto-injector Inject 1 pen intramuscular each time if needed for Allergic Reaction. 0 Active acetaminophen (TYLENOL EXTRA STRGTH) 500 mg tabletIndications:P ostoperative pain Take 2 Tablets (1,000 mg) by mouth every 6 hours if needed for Pain. Max acetaminophen dose: 4000mg in 24 hrs. 0 04/17/2022 Active methocarbamoL (ROBAXIN) 750 mg tabletIndications:P ostoperative pain Take 1 Tablet (750 mg) by mouth every 6 hours if needed for Muscle Spasm. 25 Tablet 0 04/17/2022 Active oxyCODONE (ROXICODONE) 5 mg immediate release tabletIndications:P ostoperative pain Take 1 to 2 tablets (5-10 mg) by mouth every 4 hours if needed for severe pain. 25 Tablet 0 04/17/2022 Active sennosides-docusate (SENOKOT S) (8.6-50 mg) tabletIndications:C onstipation, unspecified constipation type Take 1-4 Tablets by mouth two times daily. 30 Tablet 0 04/17/2022 Active WalkerIndications:S natalie stenosis of lumbar region, unspecified whether neurogenic claudication present Walker with front wheels for home use for 3 months. 1 Each 0 04/20/2022 Active ibuprofen (ADVIL; MOTRIN) 200 mg tabletIndications:P ostoperative pain after spinal surgery Take 3 Tablets (600 mg) by mouth every 6 hours if needed for Pain. Maximum of 3200 mg in 24 hours. 0 04/20/2022 Active cyclobenzaprine (FLEXERIL) 5 mg tabletIndications:P ostoperative pain after spinal surgery Take 1 Tablet (5 mg) by mouth three times daily. 30 Tablet 0 04/20/2022 Active Active Problems Problem Noted Date Diagnosed Date Anxiety 04/16/2022 Postoperative pain 04/16/2022 Allergic rhinitis 04/16/2022 Unspecified asthma(493.90) 11/01/2006 Sprain of hand, unspecified site 11/01/2006 Nut allergy Overview: tree nuts (NOT peanuts) Acne Immunizations Name Administration Dates Next Due AMB Influenza, IIV3 (Age >=3 years)(Flu Clinic Only) 04/12/2008 Hepatitis B (Adult) 10/29/1998,06/09/1998,1997 Influenza, IIV3 (Age >=3 years) 05/09/2007,04/30 MMR 09/26/2000 Meningococcal Vaccine (Menactra) 02/07/2007 Td (Age >=7 Years) 09/26/2000 Family History Medical History Relation Name Comments Good Health Father Good Health Mother Good Health Sister 2 Relation Name Status Comments Father Alive Mother Alive Sister 1 Alive Sister 2 Social History Tobacco Use Types Packs/Day Years Used Date Smoking Tobacco: Never Smokeless Tobacco: Never Alcohol Use Standard Drinks/Week Comments Yes 6.7 (1 standard drin k = 0.6 oz pure alcohol) rarely drinks to drunkenness, usually a beer or glass of wine about 5 times a week Social Connections Answer Date Recorded Frequency of Communication with Friends and Fami ly Not on file 09/27/2022 Sex and Gender Information Value Date Recorded Sex Assigned at Not on file Gender Identity Not on file Sexual Orientation Not on file Obstetrics History Last Filed Vital Signs Vital Sign Reading Time Taken Comments Blood Pressure 124/82 04/20/2022 8:00 AM CDT Pulse 61 04/20/2022 8:00 AM CDT Temperature 36.5 ??C (97.7 ??F) 04/20/2022 1:00 AM CD T Respiratory Rate 16 04/20/2022 8:00 AM CDT [...] (ht and wt on same day) for age 18+ 02/02/2006 Hepatitis C screening for age 18-79 02/02/2006 Tetanus booster 09/26/2010 09/26/2000 Lipids for age 35-44 02/02/2023 COVID-19 vaccine series (2022- season) 2023 04/01/2022, 06/09/2021, 10/07/2020, Additional history exists Influenza for age 9-49 02/18/2023 8, 05/09/2007, 04/30/2006 Pneumococcal series for age 6-64 Aged Out No longer eligible based on patient's age to complete this topic Advance Directives Latest Code Status on File Code Status Date Activated Date Inactivated Comments Full Code 04/18/2022 11:25 AM 04/20/2022 2:44 PM Question Answer Comments Code Status Discussion: Unable to Assess Preferences, Provider to review later Code Status History Code Status Date Activated Date Inactivated Comments Full Code 04/17/2022 11:43 AM 04/17/2022 5:36 PM Question Answer Comments Code Status Discussion: Reviewed Preferences Full Code 04/17/2022 11:43 AM 04/17/2022 11:43 AM Question Answer Comments Code Status Discussion: Reviewed Preferences Full Code 04/16/2022 10:37 AM 04/17/2022 11:43 AM Question Answer Comments Code Status Discussion: Unable to Assess Preferences, Provider to review later
== END 2023-07-04 08:41 | disposition home or self-care (01) ==
LOC: NFLDREF 07-08 07:20
PROVIDERS: PCP Family Medicine; Referring Provider Family Medicine; Visit Provider Family Medicine
DX: E78.5 Hyperlipidemia, unspecified (principal)
CPT/HCPCS: 80053; 80061

== ENCOUNTER 2024-02-01 15:15 | Outpatient (CLI) | payer OTHER, SELFPAY ==
--- OUTSIDE RECORDS SUMMARY | 2024-02-01 15:17 | XMS_ITS | Clinical Summary ---
Author Organization [facility] Address [place], [place] [address] Care Team Providers Care Consultant Internship Name Role Phone Unavailable Primary Care Provider Unavailabl e Allergies Active Allergy Reactions Criticality Noted Date Comments [place] Oil Throat Swelling/Closing Low 02/07/2007 [place] Nut Anaphylaxis High 04/14/2022 Tree Nut Anaphylaxis High 04/14/2022 Medications Medication Sig Dispensed Refills Start Date End Date Status albuterol HFA (PRO-AIR; VENTOLIN; PROVENTIL) 90 mcg/actuation inhaler INHALE 2 PUFFS BY MOUTH EVERY 4 TO 6 HOURS NEEDED FOR WHEEZING/DIFFICULT BREATHING 06/18/2021 Active clobetasol cream 0.05% (TEMOVATE) 0.05 % cream Apply topically to affected area(s) once weekly. Uses on weekends 07/24/2021 Active gabapentin (NEURONTIN) 300 mg capsule Take 300 mg by mouth two times daily. 02/15/2022 Active levocetirizine (XYZAL) 5 mg tab tablet Take 5 mg by mouth once daily. Active omeprazole 20 mg tablet Take 20 mg by mouth once daily. Active ruxolitinib 1.5 % creaIndications:ecz therese Apply topically to affected area(s) at bedtime. To hands Active escitalopram oxalate (LEXAPRO) 20 mg tablet Take 20 mg by mouth once daily. 12/15/2021 Active EPINEPHrine (EPIPEN) 0.3 mg/0.3 mL auto-injector Inject 1 pen intramuscular each time if needed for Allergic Reaction. Active acetaminophen (TYLENOL EXTRA STRGTH) 500 mg tabletIndications:P ostoperative pain Take 2 Tablets (1,000 mg) by mouth every 6 hours if needed for Pain. Max acetaminophen dose: 4000mg in 24 hrs. 0 04/17/2022 Active methocarbamoL (ROBAXIN) 750 mg tabletIndications:P ostoperative pain Take 1 Tablet (750 mg) by mouth every 6 hours if needed for Muscle Spasm. 25 Tablet 04/17/2022 Active oxyCODONE (ROXICODONE) 5 mg immediate release tabletIndications:P ostoperative pain Take 1 to 2 tablets (5-10 mg) by mouth every 4 hours if needed for severe pain. 25 Tablet 04/17/2022 Active sennosides-docusate (SENOKOT S) (8.6-50 mg) tabletIndications:C onstipation, unspecified constipation type Take 1-4 Tablets by mouth two times daily. 30 Tablet 04/17/2022 Active WalkerIndications:S natalie stenosis of lumbar region, unspecified whether neurogenic claudication present Walker with front wheels for home use for 3 months. 1 Each 04/20/2022 Active ibuprofen (ADVIL; MOTRIN) 200 mg tabletIndications:P ostoperative pain after spinal surgery Take 3 Tablets (600 mg) by mouth every 6 hours if needed for Pain. Maximum of 3200 mg in 24 hours. 04/20/2022 Active cyclobenzaprine (FLEXERIL) 5 mg tabletIndications:P ostoperative pain after spinal surgery Take 1 Tablet (5 mg) by mouth three times daily. 30 Tablet 04/20/2022 Active Active Problems Problem Noted Date [...] Additional history exists Influenza for age 9-49 02/19/2024200 8, 05/09/2007, 04/30/2006 Pneumococcal series for age 6-64 Aged Out No longer eligible based on patient's age to complete this topic Advance Directives * Full Code (Latest Code Status on File) Date Activated Date Inactivated Comments 04/18/2022 11:25 AM 04/20/2022 2:44 PM Question Answer Comments Code Status Discussion: Unable to Assess Preferences, Provider to review later * Full Code Date Activated Date Inactivated Comments 04/17/2022 11:43 AM 04/17/2022 5:36 PM Question Answer Comments Code Status Discussion: Reviewed Preferences * Full Code Date Activated Date Inactivated Comments 04/17/2022 11:43 AM 04/17/2022 11:43 AM Question Answer Comments Code Status Discussion: Reviewed Preferences * Full Code Date Activated Date Inactivated Comments 04/16/2022 10:37 AM 04/17/2022 11:43 AM Question Answer Comments Code Status Discussion: Unable to Assess Preferences, Provider to review later
--- NOTE | 2024-02-01 15:30 | CRLHL7_ITS ---
For Patients: As a result of the Century Cures Act, medical imaging exams and procedure reports are released immediately into your electronic medical record. You may view this report before your referring provider. If you have questions, please contact your health care provider. INDICATION: Low back pain. COMPARISON: 02/18/2022. Technique lumbar cortical. FINDINGS: Normal vertebral body alignment. No fractures. No vertebral body loss of height. No spondylolisthesis. No ligamentous injury. No suspicious osseous lesions. Normal conus terminates at L1. Interval postop changes of laminotomies at L4-5 and L5-S1. No significant edema or inflammation within the posterior soft tissues. T12-L1 L1-2: No spinal canal or neural foraminal narrowing. L2-3: No narrowing of the spinal canal. No neural foraminal narrowing. L3-4: No spinal canal or neural foraminal narrowing. L4-5: Disc degeneration. Right paracentral to foraminal disc herniation measures approximately 3 mm in short axis. Moderate narrowing of spinal canal. Right subarticular recess narrowing with potential impingement of the traversing right L5 nerve root. No neural foraminal narrowing. Mild facet arthropathy. L5-S1: Disc degeneration. Posterior disc bulge measures approximately 4 mm short axis. No narrowing of spinal canal. Bilateral subarticular recess narrowing with potential impingement of the traversing S1 nerve roots. Mild narrowing of bilateral foramina. Degenerative changes of the SI joints. Normal paraspinal soft tissues. Impression : 1. Normal alignment. No fractures 2. Interval postop changes L4-5 and L5-S1. 3. At L4-5, right paracentral to foraminal disc herniation. Moderate narrowing of the spinal canal. Potential impingement of the traversing right L5 nerve root. 4. At L5-S1, posterior disc bulge. Potential impingement of the traversing S1 nerve roots. Mild narrowing of the bilateral neural foramen Dictated by Jim Lopez MD @ 02/01/2024 4:37:07 PM (Electronically Signed)
== END 2024-02-01 15:16 | disposition home or self-care (01) ==
LOC: MRI 15:16
PROVIDERS: PCP Family Medicine; Visit Provider Registered Nurse
DX: M54.50 Low back pain, unspecified (principal); M51.26 Other intervertebral disc displacement, lumbar region; M51.27 Other intervertebral disc displacement, lumbosacral region
CPT/HCPCS: 72148

== ENCOUNTER 2024-10-01 08:00 | Outpatient (CLI) | payer OTHER, SELFPAY | END 2024-10-01 08:01 | disposition home or self-care (01) | LOC: NFLDREF 10-03 05:53 | PROVIDERS: PCP Family Medicine; Referring Provider Family Medicine; Visit Provider Family Medicine | DX: E78.5 Hyperlipidemia, unspecified (principal) | CPT/HCPCS: 80053; 80061 ==